=== PATIENT | female | born 1990 | race Caucasian/White ===

== ENCOUNTER 2021-12-12 14:09 | Emergency (ER) | payer SELFPAY ==
[2021-12-12 14:21] VITALS: BP 117/45; PULSE 95; RESP 16; TEMP 36.8; O2SAT 98
[2021-12-12 14:43] LABS: HCG Qualitative Urine. Negative (Negative)
[2021-12-12 14:48] LABS: Add Urine Microscopic? YES; Bilirubin Urine Neg (Negative); Blood Urine 2+ (Negative); Glucose Urine UA Norm (Normal); Ketones Urine Negative (Negative); Leukocyte Esterase Urine Negative (Negative); Nitrate Urine Negative (Negative); Protein Urine Neg (Negative); Urine Appearance SL Hazy (CLEAR); Urine Color Yellow (Yellow); Urobilinogen Urine 4 mg/dL (Negative); pH Urine 7 (5-7)
[2021-12-12 14:57] LABS: Bacteria Urine 1+ /hpf; Mucus Urine 2+ /hpf; WBC Urine 0-4 /hpf (0-5)
[2021-12-12 14:58] LABS: Add Urine Culture? No; Amorphous Sediment Urine 1+ /hpf
[2021-12-12 16:52] LABS: Basophils # 0.1 10^3/uL (0.0-0.1); Basophils % 0.6 %; Eosinophils # 0.1 10^3/uL (0.0-0.8); Eosinophils % 1.2 %; Hematocrit 38.4 % (37.0-47.0); Hemoglobin 12.7 g/dL (11.5-15.3); Lymphocytes # 2.5 10^3/uL (0.8-4.8); Lymphocytes % 23.9 %; Mean Corpuscular HGB Conc 33.1 g/dL (30.0-36.0); Mean Corpuscular Hemoglobin 30.2 pg (28.0-34.0); Mean Corpuscular Volume 91.4 fl (81-99); Mean Platelet Volume 11.6 fL (7.4-10.4); Monocytes # 0.5 10^3/uL (0.2-0.9); Monocytes % 4.7 %; Neutrophils # 7.11 10^3/uL (1.8-7.7); Neutrophils % 69.4 %; Nucleated Red Blood Cells % 0 %; Platelet Count 226 10^3/cmm (130-400); Red Cell Distribution Width 12.3 % (12.1-15.1); White Blood Count 10.2 10^3/uL (4.0-10.0)
[2021-12-12 17:15] LABS: Alanine Aminotransferase 15 U/L (0-33); Alkaline Phosphatase 95 IU/L (35-105); Anion Gap 14.1 (5-19); Aspartate Amino Transferase 16 U/L (0-32); Blood Urea Nitrogen 9 mg/dL (6-20); Carbon Dioxide 25 mmol/L (22-29); Chloride 106 mmol/L (98-107); Globulin 2.4 g/dL (1.3-4.6); Glucose 99 mg/dL (65-115); Osmolality Calculated 291 mOsm/kg (285-295); Potassium 4.1 mmol/L (3.5-5.1); Sodium 141 mmol/L (136-145); Total Bilirubin 0.2 mg/dL (0.15-1.2); Total Protein 6.4 g/dL (6.6-8.7)
--- NOTE | 2021-12-12 17:46 | ED_ITS ---
HPI - Female Genitourinary General: Chief complaint: Urogenital-Female Stated complaint: lower abd/back pain x 1wk Time Seen by Provider: 12/12/21 17:45 History of Present Illness: 31-year-old female comes in with urinary discomfort and flank pain for about 1 week. Patient reports history of urinary tract infections and a renal calculi. Patient reports no difficulties in the last year with these abnormalities. Patient denies any vaginal discharge. Patient appears nontoxic. Patient appears in mild pain. Patient reports taking [id number] naproxen with minimal relief. Review of Systems : Reports: flank pain and difficulty voiding Physical Exam Const: COMMON NORMALS: alert HENMT: COMMON NORMALS: normocephalic HEAD & SCALP: normocephalic Neck/C-Spine: COMMON NORMALS: full ROM Resp: COMMON NORMALS: normal respiratory effort GI: COMMON NORMALS: Soft to palpation PALPATION: Yes Soft to palpation Extremity: COMMON NORMALS: normal to inspection Neuro: SENSORIUM/ORIENTATION: Yes alert Skin: COMMON NORMALS: no rashes or lesions noted GENERAL SKIN EXAM: no rashes or lesions noted Course Vital Signs: Vital signs: Vital Signs Temperature 98.2 F 12/12/21 14:21 Pulse Rate 95 12/12/21 14:21 Respiratory Rate 16 12/12/21 14:21 Blood Pressure 117/45 12/12/21 14:21 Pulse Oximetry 98 12/12/21 14:21 [facility] - Female Medical Decision Making 31-year-old female comes in today with complaints of urinary discomfort and flank pain for about 1 week. On exam abdomen soft with minimal to no tenderness. Patient does have some mild right flank tenderness. Vital signs are normal. Differential diagnosis includes urinary tract infection, renal calculi, malingering. CBC had a increased white blood cell count 10,000. Urinalysis was notable for some blood and white blood cells but also had a significant number of skin cells. Urine culture was ordered per reflex. Ultrasound of the kidneys was unremarkable. CMP was unremarkable. Patient probably has a mild cystitis. We will go ahead and treat with cephalexin. Patient was given 6 tablets of hydrocodone for her discomfort due to allergies to NSAIDs and other pain relievers. Lab Data : 12/12/21 16:44 12/12/21 16:44 Laboratory Results WBC 10.2 10^3/uL (4.0-10.0) H 12/12/21 16:44 RBC 4.20 10^6/uL (4.1-5.3) 12/12/21 16:44 Hgb 12.7 g/dL (11.5-15.3) 12/12/21 16:44 Hct 38.4 % (37.0-47.0) 12/12/21 16:44 MCV 91.4 fl (81-99) 12/12/21 16:44 MCH 30.2 pg (28.0-34.0) 12/12/21 16:44 MCHC 33.1 g/dL (30.0-36.0) 12/12/21 16:44 RDW 12.3 % (12.1-15.1) 12/12/21 16:44 Plt Count 226 10^3/cmm (130-400) 12/12/21 16:44 MPV 11.6 fL (7.4-10.4) H 12/12/21 16:44 Neut % (Auto) 69.4 % 12/12/21 16:44 Lymph % (Auto) 23.9 % 12/12/21 16:44 [place] % (Auto) 4.7 % 12/12/21 16:44 Eos % (Auto) 1.2 % 12/12/21 16:44 Baso % (Auto) 0.6 % 12/12/21 16:44 Neut # (Auto) 7.11 10^3/uL (1.8-7.7) 12/12/21 16:44 Lymph # (Auto) 2.5 10^3/uL (0.8-4.8) 12/12/21 16:44 [place] # (Auto) 0.5 10^3/uL (0.2-0.9) 12/12/21 16:44 Eos # (Auto) 0.1 10^3/uL (0.0-0.8) 12/12/21 16:44 Baso # (Auto) 0.1 10^3/uL (0.0-0.1) 12/12/21 16:44 Nucleated RBC % (auto) 0 % 12/12/21 16:44 Nucleated RBCs # 0.0 /100WBC 12/12/21 16:44 Sodium 141 mmol/L (136-145) 12/12/21 16:44 Potassium 4.1 mmol/L (3.5-5.1) 12/12/21 16:44 Chloride 106 mmol/L (98-107) 12/12/21 16:44 Carbon Dioxide 25 mmol/L (22-29) 12/12/21 16:44 Anion Gap 14.1 (5-19) 12/12/21 16:44 BUN 9 mg/dL (6-20) 12/12/21 16:44 Creatinine 0.5 mg/dL (0.5-0.9) 12/12/21 16:44 GFR Calculation 143.0 mL/min (90-130) H 12/12/21 16:44 Glucose 99 mg/dL (65-115) 12/12/21 16:44 Calculated Osmolality 291 mOsm/kg (285-295) 12/12/21 16:44 Calcium 9.0 mg/dL (8.5-10.5) 12/12/21 16:44 Total Bilirubin 0.2 mg/dL (0.15-1.2) 12/12/21 16:44 AST 16 U/L (0-32) 12/12/21 16:44 ALT 15 U/L (0-33) 12/12/21 16:44 Alkaline Phosphatase 95 IU/L (35-105) 12/12/21 16:44 Total Protein 6.4 g/dL (6.6-8.7) L 12/12/21 16:44 Albumin 4.0 g/dL (3.5-5.2) 12/12/21 16:44 Globulin 2.4 g/dL (1.3-4.6) 12/12/21 16:44 HCG, Qual Negative (Negative) 12/12/21 14:28 Urine Color Yellow (Yellow) 12/12/21 14:28 Urine Appearance Sl hazy (CLEAR) 12/12/21 14:28 Urine pH 7 (5-7) 12/12/21 14:28 Ur Specific [place] 1.020 (1.005-1.030) 12/12/21 14:28 Urine Protein Neg (Negative) 12/12/21 14:28 Urine Glucose (UA) Norm (Normal) 12/12/21 14:28 Urine Ketones Negative (Negative) 12/12/21 14:28 Urine Blood 2+ (Negative) H 12/12/21 14:28 Urine Nitrate Negative (Negative) 12/12/21 14:28 Urine Bilirubin Neg (Negative) 12/12/21 14:28 Urine Urobilinogen 4 mg/dL (Negative) H 12/12/21 14:28 Ur Leukocyte Esterase Negative (Negative) 12/12/21 14:28 Urine RBC 5-10 /hpf (0-2) H 12/12/21 14:28 Urine WBC 0-4 /hpf (0-5) H 12/12/21 14:28 Ur Squamous Epith Cells 10-15 /hpf (0-5) H 12/12/21 14:28 Amorphous Sediment 1+ /hpf 12/12/21 14:28 Urine Bacteria 1+ /hpf (NONE) H 12/12/21 14:28 Urine Mucus 2+ /hpf 12/12/21 14:28 Discharge Plan Discharge Patient Disposition: Home Clinical Impression: Cystitis Condition: Stable Prescriptions: New cephalexin 500 mg capsule 500 mg PO BID 5 Days Qty: 9 0RF hydrocodone-acetaminophen 5-325 mg tablet 1 tab PO Q8H PRN (Reason: pain) Qty: 5 0RF Discharge Orders: Discharge ED (Routine); Ordered 12/12/21 Ordered By: Angel Ellis Discharge Diet: Usual diet Discharge Activity: Increase activity as tolerated Patient Instructions: Urinary Tract Infection in Women (ED) Activity Restrictions/Additional Instructions: Medications as directed. Drink plenty of water with them. Follow-up with primary care in 3 to 5 days for recheck of urine. Return to ER for new concerns. Coding Level of Care Code ED Safety Coordinator for [facility] Fwd Exam Detailed
--- NOTE | 2021-12-12 17:55 | USR_ITS ---
PROCEDURE INFORMATION: Exam: US Retroperitoneal; Complete; Kidneys and Bladder Exam date and time: 12/12/2021 6:30 PM Age: 31 years old Clinical indication: Abdominal pain; Additional info: R/O hydronephrosis TECHNIQUE: Imaging protocol: Real-time ultrasound of the retroperitoneum with image documentation. Complete exam focused on the kidneys and bladder. COMPARISON: CT kidney stone [id number] 03/09/2017 3:09 PM FINDINGS: Right kidney: Normal. No stones. No hydronephrosis. Left kidney: Normal. No stones. No hydronephrosis. Urinary bladder: Unremarkable. US/US renal BI* [id number] IMPRESSION: Unremarkable kidneys and bladder.
[2021-12-12] MEDS: HYDROcodone-acetaminophen 5-325 mg Tablet 1 TAB PO (17:59)
[2021-12-12] MEDS: cephALEXin 500 mg Capsule PO (19:10)
[2021-12-12 19:17] VITALS: BP 122/58; PULSE 58; RESP 14; O2SAT 98
== END 2021-12-12 19:18 | disposition home or self-care (01) ==
PROVIDERS: Emergency Medicine; Physician Assistant; Emergency Provider Nurse Practitioner Family
DX: N30.90 Cystitis, unspecified without hematuria (principal)
CPT/HCPCS: 76770; 80053; 81001; 81025; 85025; 99284

== ENCOUNTER 2022-01-08 22:51 | Emergency (ER) | payer SELFPAY ==
[2022-01-08 22:56] VITALS: BP 113/64; PULSE 74; RESP 18; TEMP 36.8; O2SAT 99; BMI 21.9
[2022-01-08 23:28] LABS: Protein Urine Neg (Negative); Specific Gravity, Urine 1.025 (1.005-1.030); Urine Appearance Hazy (CLEAR); Urine Color Yellow (Yellow); pH Urine 5 (5-7)
[2022-01-08 23:29] LABS: Add Urine Microscopic? YES; Bilirubin Urine Neg (Negative); Blood Urine 3+ (Negative); Glucose Urine UA Norm (Normal); Ketones Urine 1+ (Negative); Leukocyte Esterase Urine Trace (Negative); Nitrate Urine Negative (Negative); Urobilinogen Urine 1 mg/dL (Negative)
[2022-01-08 23:30] LABS: Add Urine Culture? No; Bacteria Urine 1+ /hpf; Mucus Urine 3+ /hpf; WBC Urine 0-4 /hpf (0-5)
[2022-01-08 23:31] LABS: Calcium Oxalate Crystals Urine 0-4 /hpf
--- NOTE | 2022-01-09 00:08 | CTR_ITS ---
PROCEDURE INFORMATION: Exam: CT Abdomen And Pelvis Without Contrast Exam date and time: 01/09/2022 12:12 AM Age: 31 years old Clinical indication: Abdominal pain; Prior surgery; Surgery type: Tubal ligation. Appy. Gb. Patient HX: Left flank pain with hematuria. ; Additional info: L flank pain. Hematuria TECHNIQUE: Imaging protocol: Computed tomography of the abdomen and pelvis without contrast. Radiation optimization: All CT scans at this facility use at least one of these dose optimization techniques: automated exposure control; mA and/or kV adjustment per patient size (includes targeted exams where dose is matched to clinical indication); or iterative reconstruction. COMPARISON: CR XR KUB [id number] 03/09/2017 1:45 PM RADIATION DOSE METRICS: Total DLP (mGy-cm): 357.8 FINDINGS: Liver: Normal. No mass. Gallbladder and bile ducts: Cholecystectomy. Pancreas: Normal. No ductal dilation. Spleen: Normal. No splenomegaly. Adrenal glands: Normal. No mass. Kidneys and ureters: Several suspected bilateral punctate non-obstructing calyceal stones. Stomach and bowel: Unremarkable. No obstruction. No mucosal thickening. Appendix: No evidence of appendicitis. Intraperitoneal space: Unremarkable. No free air. No significant fluid collection. Vasculature: Unremarkable. No abdominal aortic aneurysm. Lymph nodes: Unremarkable. No enlarged lymph nodes. Urinary bladder: Unremarkable as visualized. Reproductive: Unremarkable as visualized. Bones/joints: Unremarkable. No acute fracture. Soft tissues: Unremarkable. Other findings: Trace nonspecific fluid in the pelvis. CT/CT kidney stone [id number] IMPRESSION: 1. Negative for acute inflammatory process in the abdomen or pelvis. 2. Cholecystectomy. 3. Trace nonspecific fluid in the pelvis. 4. Several suspected bilateral punctate non-obstructing calyceal stones.
[2022-01-09 00:20] VITALS: RESP 18
[2022-01-09] MEDS: ondansetron 4 MG Tablet 8 MG PO (00:20)
[2022-01-09] MEDS: oxyCODONE-APAP 5-325 mg Tablet 2 TAB PO (00:20)
--- NOTE | 2022-01-09 01:35 | W.ED.GENADLT ---
HPI - General Adult General: Chief complaint: General Medical Stated complaint: UTI Time Seen by Provider: 01/08/22 23:13 Source: patient History of Present Illness: 31-year-old female with a history of kidney stones and urinary tract infection. She presents with suprapubic and left-sided greater than right-sided flank pain for the past few weeks. She notes increasing dysuria. She notes that her urine has been dark. She denies fever. She denies vomiting. She states she does get nauseated. No significant diarrhea. She says that she has scant white vaginal discharge without odor. Her last period was 2 weeks ago. Onset (ago): week(s) Location: abdomen and pelvis Radiation: flank Quality: burning and aching Pain Consistency: intermittent Relieving factors: none Associated symptoms: Reports nausea; Deny chest pain, confusion, cough, dyspnea, fevers/chills, headache(s), rash or vomiting Review of Systems Const: Denies: fever(s), chills or body aches Eyes: Denies: change in vision Card: Denies: chest pain Resp: Denies: dyspnea GI: Reports: abdominal pain and nausea; Denies: vomiting or diarrhea : Reports: dysuria; Denies: difficulty voiding Skin/Breast: Denies: rash Neuro: Denies: headache(s), weakness in extremities, dizziness or confusion Physical Exam Const: COMMON NORMALS: no acute distress GENERAL APPEARANCE: cooperative; not ill appearing and not frail appearing HENMT: COMMON NORMALS: normocephalic, atraumatic and Normal external nose present HEAD & SCALP: normocephalic and atraumatic FACE & SINUS: normal facial exam and face symmetric NOSE: Normal external nose present Eye: COMMON NORMALS: Equal, round and reactive pupils present and EOMs intact bilaterally PUPIL: Yes Equal, round and reactive pupils present Neck/C-Spine: GENERAL: Yes trachea midline Chest: CHEST: Yes Symmetrical chest wall rise Resp: COMMON NORMALS: normal respiratory effort, No retractions, No use of accessory muscles and clear to auscultation bilaterally AUSCULTATION: clear to auscultation bilaterally Cardio: COMMON NORMALS: regular rate and regular rhythm RATE: regular rate RHYTHM: regular rhythm GI: COMMON NORMALS: Normal to inspection, nondistended, normoactive bowel sounds present PALPATION: Yes Tenderness to palpation present (GI) (suprapubic) : BLADDER/KIDNEY EXAM: Yes CVA tenderness on the left Back/Pelvis: GENERAL BACK: Yes CVA tenderness Extremity: COMMON NORMALS: no pedal edema Neuro: JESÚS COMA SCALE: document GCS findings Jesús coma scale eye opening: Spontaneous Jesús coma scale verbal response: Orientated Jesús coma scale motor response: Obey commands Jesús coma scale total score: 15 SENSORY EXAM: Yes extremities (intact) Psych: COMMON NORMALS: speech normal SPEECH: Yes normal speech Skin: COMMON NORMALS: no rashes or lesions noted GENERAL SKIN EXAM: no rashes or lesions noted Course Vital Signs: Vital signs: Vital Signs Temperature 98.2 F 01/08/22 22:56 Pulse Rate 74 01/08/22 22:56 Respiratory Rate 18 01/09/22 00:20 Blood Pressure 113/64 01/08/22 22:56 Pulse Oximetry 99 01/08/22 22:56 MDM - General Adult Medical Decision Making Urinalysis shows hematuria. CT shows scant amount of pelvic free fluid, with no other acute changes. Gonorrhea and Chlamydia are sent via urine. We will have case management make her a PCP follow-up appointment Lab Data Radiology Impressions Abdomen/Pelvis CT 01/09/22 00:08 IMPRESSION: 1. Negative for acute inflammatory process in the abdomen or pelvis. 2. Cholecystectomy. 3. Trace nonspecific fluid in the pelvis. 4. Several suspected bilateral punctate non-obstructing calyceal stones. Laboratory Results Urine Color Yellow (Yellow) 01/08/22 23:15 Urine Appearance Hazy (CLEAR) A 01/08/22 23:15 Urine pH 5 (5-7) 01/08/22 23:15 Ur Specific [place] 1.025 (1.005-1.030) 01/08/22 23:15 Urine Protein Neg (Negative) 01/08/22 23:15 Urine Glucose (UA) Norm (Normal) 01/08/22 23:15 Urine Ketones 1+ (Negative) H 01/08/22 23:15 Urine Blood 3+ (Negative) H 01/08/22 23:15 Urine Nitrate Negative (Negative) 01/08/22 23:15 Urine Bilirubin Neg (Negative) 01/08/22 23:15 Urine Urobilinogen 1 mg/dL (Negative) H 01/08/22 23:15 Ur Leukocyte Esterase Trace (Negative) H 01/08/22 23:15 Urine RBC 10-15 /hpf (0-2) H 01/08/22 23:15 Urine WBC 0-4 /hpf (0-5) H 01/08/22 23:15 Ur Squamous Epith Cells 10-15 /hpf (0-5) H 01/08/22 23:15 Calcium Oxalate Crystal 0-4 /hpf H 01/08/22 23:15 Amorphous Sediment Not Reportable 01/08/22 23:15 Urine Bacteria 1+ /hpf (NONE) H 01/08/22 23:15 Urine Mucus 3+ /hpf 01/08/22 23:15 Discharge Plan Discharge Patient Disposition: Home Clinical Impression: Acute left flank pain Condition: Stable Prescriptions: No Action hydrocodone-acetaminophen 5-325 mg tablet 1 tab PO Q8H PRN (Reason: pain) Qty: 5 0RF Discharge Orders: Discharge ED (Routine); Ordered 01/09/22 Ordered By: Garret Doherty Discharge Diet: Advance as tolerated Discharge Activity: Increase activity as tolerated Patient Instructions: Flank Pain (ED), Opioid Safety Activity Restrictions/Additional Instructions: Return for fever greater than 100F, vomiting liquids or medications, worsening pain despite treatment, other concerning symptoms. Call for the results of the rest of your tests on tuesday. Coding Level of Care Code ED Electrical Engineering Draftsperson for [facility] Fwd Exam Comprehensive
--- NOTE | 2022-01-20 09:59 | DCPLANNER ---
late entry - patient case manager had message to speak with patient about getting established with a primary care physician. nurse unit manager unable to speak with patient at this time.
== END 2022-01-09 01:56 | disposition home or self-care (01) ==
PROVIDERS: Emergency Provider Emergency Medicine
DX: R10.9 Unspecified abdominal pain (principal)
CPT/HCPCS: 74176; 81001; 87591; 99285; Q0162

== ENCOUNTER → 2022-05-25 11:02 | Outpatient (BNVA) | payer MEDICAID, SELFPAY | PROVIDERS: Visit Provider Family Medicine | DX: F32.A Depression, unspecified (principal); F41.9 Anxiety disorder, unspecified; G47.00 Insomnia, unspecified; M79.10 Myalgia, unspecified site; M25.50 Pain in unspecified joint; R53.83 Other fatigue | CPT/HCPCS: 80053; 82607; 84443; 85025; 85651; 86038; 86140 ==

== ENCOUNTER 2022-06-04 10:54 | Outpatient (CLI) | payer MEDICAID, SELFPAY ==
--- NOTE | 2022-06-04 11:03 | XR_ITS ---
WS: [id number] LUMBAR SPINE: 3 VIEWS TECHNIQUE: AP, lateral and L5-S1 spot. HISTORY: M54.50 - Low back pain, unspecified COMPARISON: None available. Very mild LEFT curvature of the lumbar spine. No fractures. Pedicles are all identified. No loss of disc space or vertebral body height. SI joints are symmetric bilaterally. No soft tissue abnormalities. Prior cholecystectomy. XR/XR lumbar spine 2-3V* [id number] IMPRESSION: 1. Mild rotoscoliosis lumbar spine to the LEFT. 2. No fractures. 3. Prior cholecystectomy.
== END 2022-06-04 10:55 | disposition home or self-care (01) ==
LOC: RAD 10:57
PROVIDERS: PCP Family Medicine; Visit Provider Family Medicine
DX: M54.50 Low back pain, unspecified (principal); M41.86 Other forms of scoliosis, lumbar region
CPT/HCPCS: 72100

== ENCOUNTER 2022-08-23 16:30 | Outpatient (CLI) | payer BC, SELFPAY ==
--- NOTE | 2022-08-23 16:41 | CT_ITS ---
WS: [id number] CT LUMBAR SPINE, noncontrast. HISTORY: M54.50 - Low back pain, unspecified TECHNIQUE: Contiguous 2.0 mm axial imaging are performed. Sagittal and coronal reformats are submitte d and reviewed. All CT scans at [facility] use at least one of these dose optimization techni ques: automated exposure control; mA and/or kV adjustment per patient size (includes targeted exams w here dose is matched to clinical indication); or iterative reconstruction. IV contrast: None DLP: 310.48 mGy.cm COMPARISON: None available. Very mild rotary scoliosis of the lumbar spine. The posterior alignment is normal. No fractures or ma rrow signal abnormalities. No pars defects. Disc spaces are maintained. L1-2: Normal. L2-3: Normal. L3-4: No significant stenosis. There is a shallow LEFT foraminal disc protrusion not causing signific ant stenosis or contact on the nerve root. L4-5: Very mild annular disc bulging without stenosis. Mild facet arthritis. L5-S1: Mild asymmetric disc bulging. Very shallow RIGHT foraminal disc protrusion. Disc protrusion is not contacting the nerve roots. No significant stenosis. Prior cholecystectomy. Nonobstructing 2 mm calcification RIGHT renal pelvis. Negative SI joints. CT/CT lumbar spine wo con* [id number] IMPRESSION: 1. No significant disc protrusions or stenosis within the lumbar spine. 2. Very shallow LEFT foraminal disc protrusion at L3-4 and on the RIGHT at L5- S1. 3. Prior cholecystectomy.
== END 2022-08-23 16:31 | disposition home or self-care (01) ==
LOC: RAD 16:31
PROVIDERS: PCP Family Medicine; Visit Provider Family Medicine
DX: M51.27 Other intervertebral disc displacement, lumbosacral region (principal); M25.50 Pain in unspecified joint
CPT/HCPCS: 72131

== ENCOUNTER 2022-09-05 14:44 | Emergency (ER) | payer BC, MEDICAID, SELFPAY ==
[2022-09-05 14:53] VITALS: BP 114/79; PULSE 86; RESP 16; TEMP 36.7; O2SAT 97
[2022-09-05 15:12] LABS: Basophils # 0.1 10^3/uL (0.0-0.1); Basophils % 0.7 %; Eosinophils # 0.1 10^3/uL (0.0-0.8); Eosinophils % 0.4 %; Hematocrit 41.8 % (37.0-47.0); Hemoglobin 14.1 g/dL (11.5-15.3); Lymphocytes # 2.6 10^3/uL (0.8-4.8); Lymphocytes % 22.2 %; Mean Corpuscular HGB Conc 33.7 g/dL (30.0-36.0); Mean Corpuscular Hemoglobin 30.1 pg (28.0-34.0); Mean Corpuscular Volume 89.3 fl (81-99); Mean Platelet Volume 11.3 fL (7.4-10.4); Monocytes # 0.7 10^3/uL (0.2-0.9); Monocytes % 5.9 %; Neutrophils # 8.09 10^3/uL (1.8-7.7); Neutrophils % 70.5 %; Nucleated Red Blood Cells % 0 %; Platelet Count 238 10^3/cmm (130-400); Red Blood Count 4.68 10^6/uL (4.1-5.3); White Blood Count 11.5 10^3/uL (4.0-10.0)
[2022-09-05] MEDS: ondansetron 2 mg/ML SDV 2 mL 4 MG IVP ×2 (15:16→16:45)
[2022-09-05] MEDS: sodium chloride 0.9% 1,000 ML 999 ML IV ×2 (15:16→16:45)
--- NOTE | 2022-09-05 15:17 | ED_ITS ---
HPI - Abdominal Pain General: Chief Complaint: Abdominal Pain Stated Complaint: urinary pain Time Seen by Provider: 09/05/22 14:48 Source: patient Mode of arrival: ambulatory History of Present Illness: [id number] female presents emergency room complaining of dysuria urgency and frequency and right-sided flank pain. Only complaint is her period which is normal for her. She has noticed her urine is been all discolored but has not noticed any osvaldo blood. She has a history of recurrent UTIs and do not. She has not had any fever sweats or chills no vomiting or diarrhea. MD elicited complaint: abdominal pain Pertinent past history: none Onset (ago): minute(s) Pain Consistency: constant Location: None Severity: mild Quality: cramping Exacerbating factors: nothing Relieving factors: nothing Associated Symptoms: Reports dysuria; Denies anorexia, belching, bloating, change in bowel habits, change in stool character, chills, coffee ground emesis, constipation, GI cramping, diarrhea, dyspepsia, excessive flatus, fever(s), heartburn, hematochezia, hematuria, hematemesis, fecal incontinence, loose stools, melena, nausea, poor appetite, syncope and vomiting Review of Systems Const: Denies: fever(s) or chills ENMT: Denies: throat pain, ear or mastoid pain, nasal discharge or nasal congestion Card: Denies: syncope Resp: Denies: dyspnea, productive cough or non-productive cough GI: Denies: nausea, vomiting, hematemesis, coffee ground emesis, heartburn, diarrhea, constipation, bloating, GI cramping, belching, excessive flatus, fecal incontinence, change in bowel habits, change in stool character, hematochezia or melena : Reports: flank pain (R), dysuria, urinary frequency and urinary urgency; Denies: hematuria Skin/Breast: Denies: rash or pruritus PFSH ED PFSH: Medical History Anxiety Chronic constipation Psychiatric care Family History Father Cancer Dementia Mother Lupus Denies family history of Diabetes Chronic kidney disease (CKD) Family history of premature coronary artery disease Hypertension Social History (Reviewed 04/30/23 @ 15:21 by CASANDRA Aceves Smoking and tobacco status: current every day smoker Second hand smoke exposure: No Smoking risk assessment/counseling performed?: Yes Alcohol intake: never Desire information about alcohol rehabilitation?: No Counseling given: No Substance/Drug Use: unknown Desire information about substance/drug rehabilitation?: No Counseling given: No Adopted: No Caregiver/support person: No Lives independently: Yes Household members: significant other Housing: House Marital status: Single Number of children: 5 service: No Current occupational status: unemployed Pets and animals: Yes Pets & animals: dog(s) Do you think of yourself as: Straight/Heterosexual Current gender identity: Female Physical Exam Const: COMMON NORMALS: no acute distress GENERAL APPEARANCE: cooperative and comfortable ORIENTATION/CONSCIOUSNESS: Yes awake, Yes oriented to person, Yes oriented to place and Yes oriented to time HENMT: COMMON NORMALS: normocephalic, atraumatic and hearing grossly normal bilaterally HEAD & SCALP: normocephalic and atraumatic Resp: COMMON NORMALS: normal respiratory effort, No retractions, No use of accessory muscles and clear to auscultation bilaterally AUSCULTATION: clear to auscultation bilaterally Cardio: COMMON NORMALS: regular rate, regular rhythm and No murmurs present (Cardio) RATE: regular rate RHYTHM: regular rhythm GI: COMMON NORMALS: Soft to palpation and No hepatosplenomegaly present AUSCULTATION: Yes normoactive bowel sounds PALPATION: Yes Soft to palpation, No Tenderness to palpation present (GI), No Guarding due to palpation present (GI) and Yes No hepatosplenomegaly present : BLADDER/KIDNEY EXAM: Yes CVA tenderness Back/Pelvis: GENERAL BACK: Yes CVA tenderness CVA tenderness: right Extremity: COMMON NORMALS: normal to inspection, capillary refill normal, no clubbing, cyanosis or edema, no calf tenderness and no pedal edema Neuro: SENSORIUM/ORIENTATION: Yes oriented to person, Yes oriented to place and Yes oriented to time Skin: COMMON NORMALS: no rashes or lesions noted GENERAL SKIN EXAM: no genny hes or lesions noted Course Vital Signs: Vital signs: Vital Signs Temperature 98.0 F 09/05/22 14:53 Pulse Rate 86 09/05/22 14:53 Respiratory Rate 16 09/05/22 14:53 Blood Pressure 114/79 09/05/22 14:53 Pulse Oximetry 98 09/05/22 16:02 Oxygen Delivery Me thod Room Air 09/05/22 16:02 MDM - Abdominal Pain Medical Decision Making Patient is significant amount of blood in her urine greater than white blood cells. She was concerned she had a kidney stone reporting it felt similar. CT renal stone protocol was negative for nephrolithiasis. We will start Bactrim DS 1 p.o. twice daily x7 days push fluids recheck if not improving Medical Records I reviewed the patient's medical records. Lab Data I reviewed the patient's lab results. 09/05/22 15:07 09/05/22 15:07 Labs/Radiology: Radiology Impressions Abdomen/Pelvis CT 09/05/22 15:59 IMPRESSION: 1. Limited noncontrast examination without CT evidence of acute intra-abdominal or pelvic pathology. 2. Additional findings, as above. Laboratory Results WBC 11.5 10^3/uL (4.0-10.0) H 09/05/22 15:07 RBC 4.68 10^6/uL (4.1-5.3) 09/05/22 15:07 Hgb 14.1 g/dL (11.5-15.3) 09/05/22 15:07 Hct 41.8 % (37.0-47.0) 09/05/22 15:07 MCV 89.3 fl (81-99) 09/05/22 15:07 MCH 30.1 pg (28.0-34.0) 09/05/22 15:07 MCHC 33.7 g/dL (30.0-36.0) 09/05/22 15:07 RDW 12.0 % (12.1-15.1) L 09/05/22 15:07 Plt Count 238 10^3/cmm (130-400) 09/05/22 15:07 MPV 11.3 fL (7.4-10.4) H 09/05/22 15:07 Neut % (Auto) 70.5 % 09/05/22 15:07 Lymph % (Auto) 22.2 % 09/05/22 15:07 [place] % (Auto) 5.9 % 09/05/22 15:07 Eos % (Auto) 0.4 % 09/05/22 15:07 Baso % (Auto) 0.7 % 09/05/22 15:07 Neut # (Auto) 8.09 10^3/uL (1.8-7.7) H 09/05/22 15:07 Lymph # (Auto) 2.6 10^3/uL (0.8-4.8) 09/05/22 15:07 [place] # (Auto) 0.7 10^3/uL (0.2-0.9) 09/05/22 15:07 Eos # (Auto) 0.1 10^3/uL (0.0-0.8) 09/05/22 15:07 Baso # (Auto) 0.1 10^3/uL (0.0-0.1) 09/05/22 15:07 Nucleated RBC % (auto) 0 % 09/05/22 15:07 Nucleated RBCs # 0.0 /100WBC 09/05/22 15:07 Sodium 139 mmol/L (136-145) 09/05/22 15:07 Potassium 3.6 mmol/L (3.5-5.1) 09/05/22 15:07 Chloride 104 mmol/L (98-107) 09/05/22 15:07 Carbon Dioxide 23 mmol/L (22-29) 09/05/22 15:07 Anion Gap 15.6 (5-19) 09/05/22 15:07 BUN 9 mg/dL (6-20) 09/05/22 15:07 Creatinine 0.6 mg/dL (0.5-0.9) 09/05/22 15:07 GFR Calculation 115.1 mL/min (90-130) 09/05/22 15:07 Glucose 91 mg/dL (65-115) 09/05/22 15:07 Calculated Osmolality 286 mOsm/kg (285-295) 09/05/22 15:07 Calcium 9.4 mg/dL (8.5-10.5) 09/05/22 15:07 HCG, Qual Negative (Negative) 09/05/22 15:10 Urine Color Yellow (Yellow) 09/05/22 15:10 Urine Appearance Clear (CLEAR) 09/05/22 15:10 Urine pH 5 (5-7) 09/05/22 15:10 Ur Specific [place] 1.020 (1.005-1.030) 09/05/22 15:10 Urine Protein Neg (Negative) 09/05/22 15:10 Urine Glucose (UA) Norm (Normal) 09/05/22 15:10 Urine Ketones Negative (Negative) 09/05/22 15:10 Urine Blood 3+ (Negative) H 09/05/22 15:10 Urine Nitrate Negative (Negative) 09/05/22 15:10 Urine Bilirubin Neg (Negative) 09/05/22 15:10 Urine Urobilinogen Norm mg/dL (Negative) 09/05/22 15:10 Ur Leukocyte Esterase Trace (Negative) H 09/05/22 15:10 Urine RBC 5-10 /hpf (0-2) H 09/05/22 15:10 Urine WBC 0-4 /hpf (0-5) H 09/05/22 15:10 Ur Squamous Epith Cells 10-15 /hpf (0-5) H 09/05/22 15:10 Amorphous Sediment Not Reportable 09/05/22 15:10 Urine Bacteria 1+ /hpf (NONE) H 09/05/22 15:10 Urine Mucus Trace /hpf 09/05/22 15:10 Discharge Plan Discharge Patient Disposition: Home Clinical Impression: Cystitis Condition: Stable Prescriptions: New Bactrim DS 800-160 mg tablet 1 tab PO BID 7 Days Qty: 14 0RF Discontinued amoxicillin 875 mg tablet 875 mg PO BID Qty: 20 0RF No Action polyethylene glycol 3350 [Miralax] 17 gram/dose powder 4 g PO DAILY Qty: 510 1RF fluoxetine 40 mg capsule 40 mg PO DAILY Qty: 30 1RF magnesium oxide 400 mg magnesium tablet 400 - 800 mg PO .qpm Qty: 60 1RF [id number] 3.5-10,000-1 mg/mL-unit/mL-% drops,suspension 4 drp otic (ear) Q8H 10 Days Qty: 10 0RF Discharge Orders: Discharge ED (Routine); Ordered 09/05/22 Ordered By: Angel Travis Referrals: Yony Schaeffer DO [Primary Care Provider] - Patient Instructions: Opioid Safety, Pain Management Activity Restrictions/Additional Instructions: You were seen today for urinary tract symptoms and flank pain. The CT did not show any stones in the ureter. Urine showed signs of infection. We will treat with antibiotics 1 pill twice daily for 7 days. Increase fluid intake if your s ymptoms worsen or change return to the emergency room with your primary care physician. Coding Level of Care Code ED Crusher Loader Operator for Sunni Mclean
[2022-09-05 15:37] LABS: Anion Gap 15.6 (5-19); Blood Urea Nitrogen 9 mg/dL (6-20); Calcium 9.4 mg/dL (8.5-10.5); Carbon Dioxide 23 mmol/L (22-29); Chloride 104 mmol/L (98-107); Glomerular Filtration Rate 115.1 mL/min (90-130); Glucose 91 mg/dL (65-115); Osmolality Calculated 286 mOsm/kg (285-295); Potassium 3.6 mmol/L (3.5-5.1); Sodium 139 mmol/L (136-145)
[2022-09-05 15:57] LABS: Add Urine Microscopic? YES; Bacteria Urine 1+ /hpf; Bilirubin Urine Neg (Negative); Blood Urine 3+ (Negative); Glucose Urine UA Norm (Normal); Ketones Urine Negative (Negative); Leukocyte Esterase Urine Trace (Negative); Nitrate Urine Negative (Negative); Protein Urine Neg (Negative); Urine Appearance Clear (CLEAR); Urine Color Yellow (Yellow); Urobilinogen Urine Norm (Negative); WBC Urine 0-4 /hpf (0-5); pH Urine 5 (5-7)
[2022-09-05 15:58] LABS: Add Urine Culture? No; Mucus Urine TRACE /hpf
--- NOTE | 2022-09-05 15:59 | CTR_ITS ---
PROCEDURE INFORMATION: Exam: CT Abdomen And Pelvis Without Contrast Exam date and time: 09/05/2022 4:31 PM Age: 32 years old Clinical indication: Abdominal pain; Flank; Right; Prior surgery; Surgery type: Shanon; Appy; Additional info: Flank pain TECHNIQUE: Imaging protocol: Computed tomography of the abdomen and pelvis without contrast. Axial, coronal and sagittal reformatted images were created and reviewed. Radiation optimization: All CT scans at this facility use at least one of these dose optimization techniques: automated exposure control; mA and/or kV adjustment per patient size (includes targeted exams where dose is matched to clinical indication); or iterative reconstruction. REPORTING DATA: Count of CT and Cardiac NM exams in prior 12 months: This patient has received 2 known CTs and 0 known cardiac nuclear medicine studies in the 12 months prior to the current study. COMPARISON: CT kidney stone [id number] 01/09/2022 12:12 AM RADIATION DOSE METRICS: Total DLP (mGy-cm): 365.13 FINDINGS: Liver: Unremarkable. Gallbladder and bile ducts: Status post cholecystectomy. No biliary ductal dilatation. Pancreas: Unremarkable. Spleen: Unremarkable. Adrenal glands: Normal. No mass. Kidneys and ureters: Nonobstructing bilateral renal calculi. No hydronephrosis. Stomach and bowel: No bowel wall thickening. No obstruction. No pneumatosis. Appendix: Status post appendectomy. Intraperitoneal space: No free fluid. No organized fluid collection. No free air. Vasculature: Unremarkable. No aneurysm. Lymph nodes: No pathologically enlarged lymph nodes. Urinary bladder: Unremarkable as visualized. Reproductive: Unremarkable. Bones/joints: No acute osseous abnormality. Mild degenerative changes. Soft tissues: Unremarkable. CT/CT kidney stone [id number] IMPRESSION: 1. Limited noncontrast examination without CT evidence of acute intra-abdominal or pelvic pathology. 2. Additional findings, as above.
[2022-09-05 16:02] VITALS: O2SAT 98
[2022-09-05 16:16] LABS: HCG Qualitative Urine. Negative (Negative)
[2022-09-05] MEDS: morphine 4 mg/mL SDV 1 mL IVP (16:45)
== END 2022-09-05 18:01 | disposition home or self-care (01) ==
PROVIDERS: Emergency Provider Family Medicine; PCP Family Medicine
DX: N30.90 Cystitis, unspecified without hematuria (principal)
CPT/HCPCS: 74176; 80048; 81001; 81025; 85025; 96361; 96374; 96375; 96376; 99285; J2270; J2405; J7030

== ENCOUNTER 2022-12-08 20:12 | Emergency (ER) | payer BC, SELFPAY ==
[2022-12-08 20:32] VITALS: BP 140/50; PULSE 73; RESP 18; TEMP 36.7; O2SAT 97; BMI 22.6
[2022-12-08 21:16] LABS: Basophils # 0.1 10^3/uL (0.0-0.1); Basophils % 1.1 %; Eosinophils # 0.2 10^3/uL (0.0-0.8); Eosinophils % 2.4 %; Hematocrit 38.1 % (37.0-47.0); Hemoglobin 12.9 g/dL (11.5-15.3); Lymphocytes # 2.9 10^3/uL (0.8-4.8); Lymphocytes % 34.9 %; Mean Corpuscular HGB Conc 33.9 g/dL (30.0-36.0); Mean Corpuscular Hemoglobin 31.2 pg (28.0-34.0); Mean Platelet Volume 11.2 fL (7.4-10.4); Monocytes # 0.6 10^3/uL (0.2-0.9); Monocytes % 6.7 %; Neutrophils # 4.58 10^3/uL (1.8-7.7); Neutrophils % 54.8 %; Nucleated Red Blood Cells % 0 %; Platelet Count 219 10^3/cmm (130-400); Red Blood Count 4.14 10^6/uL (4.1-5.3); White Blood Count 8.4 10^3/uL (4.0-10.0)
[2022-12-08 21:38] LABS: Urine Appearance Clear (CLEAR); Urine Color Yellow (Yellow)
[2022-12-08 21:39] LABS: Add Urine Microscopic? YES; Bilirubin Urine Neg (Negative); Blood Urine 3+ (Negative); Glucose Urine UA Norm (Normal); Ketones Urine Negative (Negative); Leukocyte Esterase Urine Negative (Negative); Nitrate Urine Negative (Negative); Protein Urine Neg (Negative); Squamous Epithelial Cell Urine 0-4 /hpf (0-5); Urobilinogen Urine Neg (Negative); pH Urine 5 (5-7)
[2022-12-08 21:40] LABS: Add Urine Culture? Yes; Bacteria Urine TRACE /hpf; Mucus Urine 2+ /hpf
[2022-12-08 21:49] LABS: HCG, Serum Qual Negative (Negative)
[2022-12-08 22:10] LABS: Alanine Aminotransferase 11 U/L (0-33); Albumin Level 4.4 g/dL (3.5-5.2); Alkaline Phosphatase 70 U/L (35-105); Anion Gap 12.6 (5-19); Aspartate Amino Transferase 16 U/L (0-32); Blood Urea Nitrogen 8 mg/dL (6-20); Calcium 9.5 mg/dL (8.5-10.5); Carbon Dioxide 26 mmol/L (22-29); Chloride 104 mmol/L (98-107); Globulin 2.6 g/dL (1.3-4.6); Glomerular Filtration Rate 115.1 mL/min (90-130); Glucose 98 mg/dL (65-115); Lipase 16 U/L (13-60); Osmolality Calculated 286 mOsm/kg (285-295); Potassium 3.6 mmol/L (3.5-5.1); Sodium 139 mmol/L (136-145); Total Bilirubin 0.3 mg/dL (0.15-1.2)
== END 2022-12-09 00:30 | disposition left against medical advice (07) ==
LOC: ER 20:26
PROVIDERS: Emergency Medicine; Emergency Provider Family Medicine
DX: K92.1 Melena (principal); Z53.21 Procedure and treatment not carried out due to patient leaving prior to being seen by health care provider
CPT/HCPCS: 36415; 80053; 81001; 83690; 84703; 85025; 87077; 87086; 87186; 99283

== ENCOUNTER 2022-12-09 17:23 | Emergency (ER) | payer BC, MEDICAID, SELFPAY ==
[2022-12-09 17:34] VITALS: BP 111/73; PULSE 79; RESP 17; O2SAT 97
--- NOTE | 2022-12-09 17:38 | ED_ITS ---
HPI - Abdominal Pain General: Chief Complaint: Abdominal Pain Stated Complaint: Rectal bleeding Time Seen by Provider: 12/09/22 17:38 History of Present Illness: Ms. Gambino is a 32-year-old lady presenting the emergency department for concern over possible rectal bleeding. She notes increased frequency and intensity of intermittent abdominal discomfort associated with blood that she notices in her underwear. Epigastric and periumbilical with radiation to the flanks. She often has this associated with blood that she initially identifies as rectal bleeding however she at times notices blood in the toilet with urination and also has had bleeding that she is unaware of in her underwear. She reports that this is separate from normal menstrual periods. Abdominal surgeries include cholecystectomy and appendectomy. She has had a tubal ligation. No other specific changes in health, exacerbating, or alleviating factors identified. Onset (ago): month(s) Review of Systems General: Reports: 10 or more systems reviewed and unremarkable except in HPI and below PFSH ED PFSH: Medical History Anxiety Chronic constipation Psychiatric care Family History Father Cancer Dementia Mother Lupus Denies family history of Diabetes Chronic kidney disease (CKD) Family history of premature coronary artery disease Hypertension Social History Smoking and tobacco status: current every day smoker Second hand smoke exposure: No Smoking risk assessment/counseling performed?: Yes Alcohol intake: never Desire information about alcohol rehabilitation?: No Counseling given: No Substance/Drug Use: unknown Desire information about substance/drug rehabilitation?: No Counseling given: No Adopted: No Caregiver/support person: No Lives independently: Yes Household members: significant other Housing: House Marital status: Single Number of children: 5 service: No Current occupational status: unemployed Pets and animals: Yes Pets & animals: dog(s) Do you think of yourself as: Straight/Heterosexual Current gender identity: Female Physical Exam Const: COMMON NORMALS: alert GENERAL APPEARANCE: cooperative and well developed HENMT: COMMON NORMALS: normocephalic and atraumatic HEAD & SCALP: normocephalic and atraumatic Eye: COMMON NORMALS: conjunctivae normal CONJUNCTIVA: Yes conjunctivae normal SCLERA: sclerae normal Neck/C-Spine: COMMON NORMALS: supple GENERAL: Yes trachea midline Resp: COMMON NORMALS: normal respiratory effort EFFORT & INSPECTION: Yes able to speak in complete sentences Cardio: COMMON NORMALS: regular rate and regular rhythm RATE: regular rate RHYTHM: regular rhythm GI: COMMON NORMALS: Soft to palpation PALPATION: Yes Soft to palpation, Yes Tenderness to palpation present (GI), No Guarding due to palpation present (GI) and No Rigid due to palpation OTHER: Rectal exam performed with certified welding inspector present. Guaiac positive brown stool and clear mucus. Nonbleeding nontender nonirritated appearing external hemorrhoids. : COMMON NORMALS: Yes no CVA tenderness BLADDER/KIDNEY EXAM: Yes no CVA tenderness Back/Pelvis: COMMON NORMALS: no CVA tenderness Extremity: GENERAL: Yes normal exam except as noted and No edema Neuro: COMMON NORMALS: moves all extremities SENSORIUM/ORIENTATION: Yes alert and No Orientation impaired Psych: COMMON NORMALS: mental status grossly normal and Normal thought process present THOUGHT PROCESS: Normal thought process present Course Vital Signs: Vital signs: Vital Signs Pulse Rate 71 12/09/22 20:09 Respiratory Rate 18 12/09/22 20:35 Blood Pressure 100/50 12/09/22 20:09 Pulse Oximetry 100 12/09/22 20:09 Oxygen Delivery Me thod Room Air 12/09/22 20:09 MDM - Abdominal Pain Medical Decision Making 32-year-old lady presenting with concern over GI bleed. Exam as above. Patient has photos of blood on underwear which is more than a few drops. Somewhat odd for rectal bleeding. Nontoxic. Satisfactory vitals. Labs were actually performed yesterday and given clinical history, exam, vital signs I do not feel that repeat is necessary. Normal hemoglobin. hCG negative. Possible hematuria though this may be contaminant without clear evidence of urinary tract infection. Given indeterminate nature of the GI tract versus vaginal bleeding further imaging is appropriate. No acute abnormality identified on CT or pelvic ultrasound. During ED course analgesia, antiemetic, Protonix, fluids given. Plan for outpatient surgery referral for endoscopy. The results of ED evaluation were discussed with the patient including prescriptions and/or symptomatic cares (if applicable) including appropriate and responsible use, followup plan, and return precautions. The patient verbalized understanding and felt safe for discharge. Medical Records I reviewed the patient's medical records. Lab Data I reviewed the patient's lab results. Labs/Radiology: Radiology Impressions Abdomen/Pelvis CT 12/09/22 18:[address]: [address] evidence of acute intra-abdominal or pelvic pathology. 2. Additional findings, as above. Pelvis Ultrasound 12/09/22 18:14 IMPRESSION: No acute sonographic findings. Discharge Plan Discharge Patient Disposition: Home Clinical Impression: Rectal bleeding, Abdominal pain, Hemorrhoids Condition: Stable Prescriptions: New Protonix 40 mg tablet,delayed release (DR/EC) 40 mg PO BID 14 Days Qty: 28 0RF oxycodone 5 mg tablet 5 mg PO Q4H PRN (Reason: pain) Qty: 6 0RF sucralfate 1 gram tablet 1 g PO TID Qty: 30 0RF No Action polyethylene glycol 3350 [Miralax] 17 gram/dose powder 4 g PO DAILY Qty: 510 1RF fluoxetine [Prozac] 20 mg capsule 20 mg PO DAILY Qty: 30 1RF quetiapine [Seroquel] 50 mg tablet 50 mg PO .HS Qty: 30 1RF magnesium oxide 400 mg magnesium tablet 400 - 800 mg PO .qpm Qty: 60 1RF Discharge Orders: Discharge ED (Routine); Ordered 12/09/22 Ordered By: Juanito Austin Discharge Diet: Advance as tolerated and Clear Liquid Discharge Activity: Increase activity as tolerated Patient Instructions: Gastrointestinal Bleeding (ED), Constipation (ED), Hemorrhoids (ED), Abdominal Pain (ED), Opioid Safety Activity Restrictions/Additional Instructions: Thank you for visiting the emergency department. You were seen and evaluated for blood per rectum. The exact cause of your symptoms is unclear however does not appear to need hospitalization at this time. As discussed you do require follow-up and I will message case management for general surgery follow-up for consideration of endoscopy. I will prescribe a proton pump inhibitor and sucralfate, for uncontrolled pain I will prescribe oxycodone, use this cautiously as discussed. It can also worsen constipation. Please use MiraLAX or other [id number] medication. Also follow-up with your primary care provider. Return for uncontrolled symptoms or anything else that you are concerned about and feel needs emergency department evaluation. Coding Level of Care Code ED Correctional Security Officer for Sunni Mclean
--- NOTE | 2022-12-09 18:14 | USR_ITS ---
PROCEDURE INFORMATION: Exam: US Pelvis Complete, Transabdominal and US Pelvis, Transvaginal Exam date and time: 12/09/2022 7:27 PM Age: 32 years old Clinical indication: Other: No labs available at time of this exam. PT presenting with complaint of intermittent rectal bleeding x 6-12 months, becoming worse. History of tubal ligation 2014 [id number]; Prior surgery; Surgery date: 6+ months; Additional info: Possible abnormal uterine bleeding LABS AND CLINICAL REPORTS: Last menstrual period start date: 11/25/2022 TECHNIQUE: Imaging protocol: Real-time complete transabdominal and transvaginal pelvic ultrasound with image documentation. Transvaginal imaging was used for better evaluation of the endometrium, adnexa, and/or cervix. COMPARISON: CT abdomen pelvis w con* [id number] 12/09/2022 6:35 PM FINDINGS: Uterus/endometrium: Uterus measures 9.4 cm x 5.2 cm x 5.3 cm. Normal endometrial thickness, measuring approximately 6 mm. Right ovary/adnexa: Right ovary measures 3.5 cm x 3.4 cm x 2.2 cm. Right ovarian volume is 13.5 mL. No mass. Normal blood flow. Left ovary/adnexa: Left ovary measures 4.1 cm x 4.6 cm x 2 cm. Left ovarian volume is 19.7 mL. No mass. Normal blood flow. Intraperitoneal space: No intraperitoneal fluid. Urinary bladder: Normal. US/US pelvic complete* [id number] IMPRESSION: No acute sonographic findings.
--- NOTE | 2022-12-09 18:14 | CTR_ITS ---
PROCEDURE INFORMATION: Exam: CT Abdomen And Pelvis With Contrast Exam date and time: 12/09/2022 6:35 PM Age: 32 years old Clinical indication: Abdominal pain; Generalized; Additional info: Gi bleed, upper abd and flank pain TECHNIQUE: Imaging protocol: Computed tomography of the abdomen and pelvis with contrast. Axial, coronal and sagittal reformatted images were created and reviewed. Radiation optimization: All CT scans at this facility use at least one of these dose optimization techniques: automated exposure control; mA and/or kV adjustment per patient size (includes targeted exams where dose is matched to clinical indication); or iterative reconstruction. Contrast material: OMNI 350; Contrast volume: 100 ml; Contrast route: INTRAVENOUS (IV); REPORTING DATA: Count of CT and Cardiac NM exams in prior 12 months: This patient has received 3 known CTs and 0 known cardiac nuclear medicine studies in the 12 months prior to the current study. COMPARISON: CT kidney stone [id number] 09/05/2022 4:31 PM RADIATION DOSE METRICS: Total DLP (mGy-cm): 374.97 FINDINGS: Liver: Unremarkable. Gallbladder and bile ducts: Status post cholecystectomy. No biliary ductal dilatation. Pancreas: Unremarkable. Spleen: Unremarkable. Adrenal glands: Normal. No mass. Kidneys and ureters: No mass. No radiodense calculi. No hydronephrosis. Stomach and bowel: Moderate amount of retained stool in the colon. No obstruction. No bowel wall thickening. No pneumatosis. Appendix: Status post appendectomy. Intraperitoneal space: Trace nonspecific free pelvic fluid, likely physiologic. No organized fluid collection. No free air. Vasculature: Unremarkable. No aneurysm. Lymph nodes: No pathologically enlarged lymph nodes. Urinary bladder: Unremarkable as visualized. Reproductive: Unremarkable. Bones/joints: No acute osseous abnormality. Soft tissues: Unremarkable. CT/CT abdomen pelvis w con* [id number]: 1[address] No CT evidence of acute intra-abdominal or pelvic pathology. 2. Additional findings, as above.
[2022-12-09] MEDS: iohexol 350 mg/mL 500 mL Btl (per mL) IV (18:43)
[2022-12-09] MEDS: sodium chloride 0.9% 1,000 ML 999 ML IV (18:46)
[2022-12-09 18:47] VITALS: RESP 18
[2022-12-09] MEDS: pantoprazole 40 mg SDV 80 MG IVP (18:47)
[2022-12-09] MEDS: morphine 4 mg/mL SDV 1 mL IVP (18:47)
[2022-12-09] MEDS: ondansetron 2 mg/ML SDV 2 mL 4 MG IVP (18:47)
[2022-12-09 18:51] VITALS: BP 102/50; PULSE 64; RESP 18; O2SAT 98
[2022-12-09 19:30] VITALS: BP 112/62; PULSE 61; O2SAT 99
[2022-12-09 20:09] VITALS: BP 100/50; PULSE 71; O2SAT 100
[2022-12-09 20:35] VITALS: RESP 18
[2022-12-09] MEDS: oxyCODONE 5 mg IR Tab/Cap PO (20:35)
--- NOTE | 2022-12-10 11:22 | DCPLANNER ---
Addendum entered by Sravanthi Maldonado 12/17/22 10:37: Patient did attend appointment Addendum entered by Sravanthi Maldonado 12/15/22 08:34: Patient has a follow up appointment scheduled for December at 2:[address] Reese. Original Note: product design manager had message to schedule a follow up appointment for patient with general surgery. product design manager sent patients information to the front office staff at general surgery. Patients information will be printed and reviewed. Clinic will call patient with appointment information.
--- NOTE | 2022-12-13 15:45 | DCPLANNER ---
manager council was triggered to call patient due to no primary care physician - patient sees a physician at the [facility].
== END 2022-12-09 20:42 | disposition home or self-care (01) ==
PROVIDERS: Emergency Provider Emergency Medicine; PCP Family Medicine
DX: K62.5 Hemorrhage of anus and rectum (principal); K64.9 Unspecified hemorrhoids; R10.9 Unspecified abdominal pain; F17.210 Nicotine dependence, cigarettes, uncomplicated
CPT/HCPCS: 74177; 76856; 96361; 96374; 96375; 99285; C9113; J2270; J2405; J7030; Q9967

== ENCOUNTER 2022-12-31 06:22 | Day surgery (SDC) | payer BC, MEDICAID, SELFPAY ==
[2022-12-29 12:15] VITALS: BMI 21.4
--- NOTE | 2022-12-31 06:23 | P.HPUD_ITS ---
Surgery/Procedure H&P Update DATE OF PROCEDURE: December 31, 2022 DATE H&P PERFORMED: 12/16/22 H&P UPDATE INFORMATION: I have reviewed H&P completed within last 30 days, I have examined patient prior to procedure, No changes to prior documentation and H&P is in [facility] EMR on date indicated PLANNED PROCEDURE: Operation Date: 12/31/22 07:20 Proposed Procedures p Colonoscopy 12222,K92.1(Not Applicable) - Gabriel Lay MD
[2022-12-31 06:35] LABS: OR HCG Qualitative Urine Negative (Negative)
[2022-12-31 06:36] VITALS: BP 112/75; PULSE 73; RESP 18; TEMP 36.6; O2SAT 99
[2022-12-31] MEDS: sodium chloride 0.9% 1,000 ML 30 ML IV (06:44)
--- NOTE | 2022-12-31 06:56 | ANES.PREANE2 ---
Pre-Anesthetic Assessment Height/Weight: Height 1.68 m Weight 60.328 kg Temp Pulse Resp BP Pulse Ox O2 Del Method 97.9 F 73 18 112/75 99 Room Air 12/31/22 06:36 12/31/22 06:36 12/31/22 06:36 12/31/22 06:36 12/31/22 06:36 12/31/22 06:36 Operation Date: 12/31/22 07:20 Proposed Procedures p Colonoscopy 33970,K92.1(Not Applicable) - Gabriel Lay MD Familial anesthetic complications: none Was Beta Tiffanie taken within 24 hours: N/A Was Clonidine taken within 24 hours: N/A Last intake: Intake Last Liquid Date 12/30/22 Last Liquid Time 22:00 Last Solid Date 12/29/22 Last Solid Time 19:00 Social Tobacco and No alcohol 1 pack(s) per day Exam alert and oriented x 3 Airway Submandibular: within normal limits Cervical ROM: within normal limits Dentition: false History/ROS No significant history except as noted Pulmonary None reported CV/HEM open heart surgery (ASD repair at age 2 (1992)- no issues since None reported Hepatic None reported GI None reported Metabolic None reported Musc/skel None reported Neuropsych Anxiety and Depression Anesthetic Plan ASA status: 2 Anesthesia: Anesthesia Evaluation, General and MAC Medications/Allergies Home Medications Medication Instructions Recorded Confirmed Last Taken Type fluoxetine 20 mg capsule (Prozac) 20 mg PO DAILY #30 caps 09/09/22 12/31/22 12/30/22 Rx Allergies Allergy/AdvReac Type Severity Reaction Status Date / Time ketorolac [From Toradol] Allergy ALGY-Rash Verified 12/16/22 13:47 naproxen Allergy ALGY-Rash Verified 12/16/22 13:47 phenazopyridine Allergy ALGY-Rash Verified 12/16/22 13:47 [From Pyridium] Current Medications Generic Name Dose Route Start Last Admin Trade Name Freq PRN Reason Stop Dose Admin Sodium Chloride 1,000 mls @ 30 mls/hr 12/31/22 06:30 12/31/22 06:44 Sodium Chloride 0.9% IV 30 mls/hr .Q24H VENESSA Administration PFSH Anesthesia Medical History Anxiety Chronic constipation Psychiatric care Family History Father Cancer Dementia Mother Lupus Denies family history of Diabetes Chronic kidney disease (CKD) Family history of premature coronary artery disease Hypertension Social History Smoking and tobacco status: current every day smoker Second hand smoke exposure: No Smoking risk assessment/counseling performed?: Yes Alcohol intake: never Desire information about alcohol rehabilitation?: No Counseling given: No Substance/Drug Use: unknown Desire information about substance/drug rehabilitation?: No Counseling given: No Adopted: No Caregiver/support person: No Lives independently: Yes Household members: significant other Housing: House Marital status: Single Number of children: 5 service: No Current occupational status: unemployed Pets and animals: Yes Pets & animals: dog(s) Do you think of yourself as: Straight/Heterosexual Current gender identity: Female Female Reproductive History Date of last menstrual period: 12/21/22 Data Anesthesia Cardiac Studies: No Data to Display
[2022-12-31 07:48] VITALS: BP 101/68; PULSE 53; RESP 18; TEMP 36.1; O2SAT 99
--- NOTE | 2022-12-31 07:54 | ANE.PACU2 ---
Inpatient post-anesthesia follow up: Airway intact: Yes Vital signs: Temperature 97.9 F Pulse Rate 73 Respiratory Rate 18 Blood Pressure 112/75 Pulse Oximetry 99 Oxygen Delivery Me thod Room Air Oxygen Flow Rate Fraction of Inspir ed Oxygen Hydration adequate: Yes Nausea and vomiting: No Pain level: 1 Mental status: Baseline
[2022-12-31 07:58] VITALS: BP 111/61; PULSE 50; RESP 16; O2SAT 99
[2022-12-31 08:10] VITALS: BP 123/66; PULSE 52; RESP 16; O2SAT 100
== END 2022-12-31 08:20 | disposition home or self-care (01) ==
PROVIDERS: Anesthesiology; PCP Family Medicine; Visit Provider Surgery
PROC: 0DJD8ZZ Inspection of Lower Intestinal Tract, Via Natural or Artificial Opening Endoscopic (ICD-10-PCS; CPT 45378; principal; 2022-12-31 07:20)
DX: K92.1 Melena (principal); D12.8 Benign neoplasm of rectum; K60.1 Chronic anal fissure; F17.200 Nicotine dependence, unspecified, uncomplicated; F41.9 Anxiety disorder, unspecified
CPT/HCPCS: 45378; 81025; 84703; J2704; J7030

== ENCOUNTER 2023-02-05 15:12 | Emergency (ER) | payer BC, MEDICAID, SELFPAY ==
[2023-02-05 15:22] VITALS: BP 111/77; PULSE 95; RESP 14; TEMP 36.7; O2SAT 97
--- NOTE | 2023-02-05 16:22 | W.ED.FEMALGU ---
HPI - Female Genitourinary General: Chief complaint: Urogenital-Female Stated complaint: urinary Time Seen by Provider: 02/05/23 16:11 History of Present Illness: 32-year-old female comes in with a history of recurrent UTI and complaints of pelvic discomfort and burning with urination. Patient denies any fever nausea vomiting. Patient does report a history of renal calculi. Patient denies any other chronic medical conditions. Patient appears nontoxic. Patient appears in mild to no pain. Review of Systems General: Reports: 10 or more systems reviewed and unremarkable except in HPI and below : Reports: dysuria and pelvic pain PFSH ED PFSH: Medical History Anxiety Chronic constipation Psychiatric care Family History Father Cancer Dementia Mother Lupus Denies family history of Diabetes Chronic kidney disease (CKD) Family history of premature coronary artery disease Hypertension Social History Smoking and tobacco status: current every day smoker Second hand smoke exposure: No Smoking risk assessment/counseling performed?: Yes Alcohol intake: never Desire information about alcohol rehabilitation?: No Counseling given: No Substance/Drug Use: unknown Desire information about substance/drug rehabilitation?: No Counseling given: No Adopted: No Caregiver/support person: No Lives independently: Yes Household members: significant other Housing: House Marital status: Single Number of children: 5 service: No Current occupational status: unemployed Pets and animals: Yes Pets & animals: dog(s) Do you think of yourself as: Straight/Heterosexual Current gender identity: Female Physical Exam Const: COMMON NORMALS: alert HENMT: COMMON NORMALS: normocephalic HEAD & SCALP: normocephalic Resp: COMMON NORMALS: normal respiratory effort Cardio: COMMON NORMALS: regular rate RATE: regular rate GI: COMMON NORMALS: Soft to palpation PALPATION: Yes Soft to palpation and No Tenderness to palpation present (GI) : COMMON NORMALS: Yes no CVA tenderness BLADDER/KIDNEY EXAM: Yes no CVA tenderness Back/Pelvis: COMMON NORMALS: no CVA tenderness Extremity: COMMON NORMALS: normal to inspection Neuro: SENSORIUM/ORIENTATION: Yes alert Skin: COMMON NORMALS: turgor normal GENERAL SKIN EXAM: turgor normal Course Vital Signs: Vital signs: Vital Signs Temperature 98.0 F 02/05/23 15:22 Pulse Rate 95 02/05/23 15:22 Respiratory Rate 14 02/05/23 15:22 Blood Pressure 111/77 02/05/23 15:22 Pulse Oximetry 97 02/05/23 15:22 Oxygen Delivery Me thod Room Air 02/05/23 15:22 MDM - Female Medical Decision Making Patient comes in with pelvic pain and urinary discomfort. Patient reports symptoms for the last 2 days. Patient has a history of recurrent urinary tract infections and renal calculi. On exam no CVA tenderness is noted. Some suprapubic tenderness is noted on palpation. Vital signs are normal. Differential diagnosis includes cystitis, renal calculi, urethritis. Urinalysis has positive for red blood cells and white blood cells. No signs of severe illness is noted. We will go ahead and cover with sulfa?trimethoprim for 5 days. Patient was given medication for pain. Encourage lots of fluids and follow-up with primary care or return to the ER for worsening symptoms. Mother reported understanding and agreed to plan. Lab Data Laboratory Results HCG, Qual Negative (Negative) 02/05/23 16:12 Urine Color Yellow (Yellow) 02/05/23 16:12 Urine Appearance Clear (CLEAR) 02/05/23 16:12 Urine pH 7 (5-7) 02/05/23 16:12 Ur Specific [place] 1.005 (1.005-1.030) 02/05/23 16:12 Urine Protein Neg (Negative) 02/05/23 16:12 Urine Glucose (UA) Norm (Normal) 02/05/23 16:12 Urine Ketones Negative (Negative) 02/05/23 16:12 Urine Blood 2+ (Negative) H 02/05/23 16:12 Urine Nitrate Negative (Negative) 02/05/23 16:12 Urine Bilirubin Neg (Negative) 02/05/23 16:12 Urine Urobilinogen Norm mg/dL (Negative) 02/05/23 16:12 Ur Leukocyte Esterase Negative (Negative) 02/05/23 16:12 Urine RBC 5-10 /hpf (0-2) H 02/05/23 16:12 Urine WBC 0-4 /hpf (0-5) H 02/05/23 16:12 Ur Squamous Epith Cells 0-4 /hpf (0-5) H 02/05/23 16:12 Amorphous Sediment Not Reportable 02/05/23 16:12 Urine Bacteria Trace /hpf (NONE) 02/05/23 16:12 No radiology studies performed this visit Discharge Plan Discharge Patient Disposition: Home Clinical Impression: Cystitis Condition: Stable Prescriptions: New sulfamethoxazole-trimethoprim 800-160 mg tablet 1 tab PO DAILY 5 Days Qty: 10 0RF hydrocodone-acetaminophen 5-325 mg tablet 1 tab PO Q8H PRN (Reason: pain (scale score 7-10)) Qty: 7 0RF No Action fluoxetine [Prozac] 20 mg capsule 20 mg PO DAILY Qty: 30 1RF Discharge Orders: Discharge ED (Routine); Ordered 02/05/23 Ordered By: Angel Ellis Referrals: Yony Schaeffer DO [Primary Care Provider] - Discharge Diet: Usual diet Discharge Activity: Increase activity as tolerated Patient Instructions: Dysuria (ED), Opioid Safety Activity Restrictions/Additional Instructions: Take medication as directed. Drink plenty of water and fluids. Use acetaminophen and ibuprofen to control pain. Use hydrocodone for severe pain. Follow-up with primary care for further instructions. Return to ED for worsening symptoms such as high fever, inability to hold fluids down, or uncontrolled pain. Coding Level of Care Code ED [employer] for Sunni Mclean
[2023-02-05 16:39] LABS: HCG Qualitative Urine. Negative (Negative)
[2023-02-05 16:46] LABS: Add Urine Culture? No; Add Urine Microscopic? YES; Bacteria Urine TRACE /hpf; Bilirubin Urine Neg (Negative); Blood Urine 2+ (Negative); Glucose Urine UA Norm (Normal); Ketones Urine Negative (Negative); Leukocyte Esterase Urine Negative (Negative); Nitrate Urine Negative (Negative); Protein Urine Neg (Negative); Specific Gravity, Urine 1.005 (1.005-1.030); Squamous Epithelial Cell Urine 0-4 /hpf (0-5); Urine Appearance Clear (CLEAR); Urine Color Yellow (Yellow); Urobilinogen Urine Norm (Negative); WBC Urine 0-4 /hpf (0-5); pH Urine 7 (5-7)
[2023-02-05] MEDS: sulfamethoxazole-trimeth DS 160-800 mg Tablet 1 TAB PO (17:18)
[2023-02-05 17:29] VITALS: RESP 16; O2SAT 98
== END 2023-02-05 17:29 | disposition home or self-care (01) ==
PROVIDERS: Emergency Provider Nurse Practitioner Family; PCP Family Medicine
DX: N30.90 Cystitis, unspecified without hematuria (principal); F17.210 Nicotine dependence, cigarettes, uncomplicated
CPT/HCPCS: 81001; 81025; 99283

== ENCOUNTER 2023-04-13 08:39 | Emergency (ER) | payer BC, MEDICAID, SELFPAY ==
[2023-04-13 08:44] VITALS: BP 119/64; PULSE 77; RESP 16; TEMP 36.9; O2SAT 99; BMI 20.3
[2023-04-13 09:10] VITALS: BP 132/81; PULSE 69; O2SAT 96
--- NOTE | 2023-04-13 09:12 | ED_ITS ---
HPI - Female Genitourinary 2 General: Chief complaint: Urogenital-Female Stated complaint: possible uti Time Seen by Provider: 04/13/23 08:43 Source: patient Mode of arrival: ambulatory Limitations: no limitations History of Present Illness: 32-year-old female states over the last 2 days she has had some suprapubic pain along with dysuria. States she feels like she has a UTI she denies any fevers denies any severe pain she had no vomiting or diarrhea denies any vaginal discharge. Associated symptoms: Deny abdominal pain, headache(s) or nausea Date of Last Menstrual Period: 03/29/23 Review of Systems 2 Const: Denies: fever(s), chills, body aches or change in appetite ENMT: Denies: throat pain or dental pain Card: Denies: chest pain Resp: Denies: dyspnea GI: Denies: abdominal pain, nausea, vomiting or diarrhea Musc: Denies: neck pain or back pain Skin/Breast: Denies: rash Neuro: Denies: headache(s) PFSH ED 2 PFSH: Medical History Anxiety Chronic constipation Psychiatric care Family History Father Cancer Dementia Mother Lupus Denies family history of Diabetes Chronic kidney disease (CKD) Family history of premature coronary artery disease Hypertension Social History Smoking and tobacco/nicotine status: current every day tobacco/nicotine user Second hand smoke exposure: No Alcohol intake: never Substance/Drug Use: unknown Adopted: No Caregiver/support person: No Lives independently: Yes Household members: significant other Housing: House Marital status: Single Number of children: 5 service: No Current occupational status: unemployed Pets and animals: Yes Pets & animals: dog(s) Do you think of yourself as: Straight/Heterosexual Current gender identity: Female Female Reproductive History: Date of last menstrual period: 03/29/23 Physical Exam 2 Const: COMMON NORMALS: no acute distress, patient oriented x3 and healthy appearing HENMT: COMMON NORMALS: normocephalic and atraumatic HEAD & SCALP: n ormocephalic and atraumatic Neck/C-Spine: COMMON NORMALS: full ROM and supple Chest: COMMONS NORMALS: normal inspection of the chest and normal palpation of entire chest wall Resp: COMMON NORMALS: normal respiratory effort, No retractions, No use of accessory muscles and clear to auscultation bilaterally AUSCULTATION: clear to auscultation bilaterally Cardio: COMMON NORMALS: regular rate, regular rhythm and No murmurs present (Cardio) RATE: regular rate RHYTHM: regular rhythm GI: COMMON NORMALS: Normal to inspection, nondistended, normoactive bowel sounds present, Soft to palpation, non-tender and no masses PALPATION: Yes Soft to palpation Extremity: COMMON NORMALS: normal to inspection Neuro: COMMON NORMALS: patient oriented x3, moves all extremities and no focal motor deficits Psych: COMMON NORMALS: mental status grossly normal, Normal thought process present and cooperative THOUGHT PROCESS: Normal thought process present Skin: COMMON NORMALS: no rashes or lesions noted and no wounds GENERAL SKIN EXAM: no rashes or lesions noted Course 2 Vital Signs: Vital signs: Vital Signs Temperature 98.5 F 04/13/23 08:44 Pulse Rate 69 04/13/23 09:10 Respiratory Rate 16 04/13/23 08:44 Blood Pressure 132/81 04/13/23 09:10 Pulse Oximetry 96 04/13/23 09:10 Oxygen Delivery Me thod Room Air 04/13/23 09:10 MDM - Female Medical Decision Making Patient presents here with abdominal pain along with dysuria blood work urinalysis CT scan here are all normal she is well-appearing here she is stable for discharge she is to follow-up with her PCP and return if worsening she understands agrees to plan. Medical Records I reviewed the patient's medical records. Lab Data I reviewed the patient's lab results. 04/13/23 10:00 04/13/23 10:00 Laboratory Results WBC 7.53 10^3/uL (3.29-11.43) 04/13/23 10:00 RBC 4.58 10^6/uL (3.85-5.65) 04/13/23 10:00 Hgb 14.10 g/dL (11.27-16.99) 04/13/23 10:00 Hct 44.5 % (36-47) 04/13/23 10:00 MCV 97.2 fl (85-98) 04/13/23 10:00 MCH 30.8 pg (27-33) 04/13/23 10:00 MCHC 31.7 g/dL (30-55) 04/13/23 10:00 RDW 12.3 % (12.1-15.1) 04/13/23 10:00 Plt Count 204 10^3/cmm (157-399) 04/13/23 10:00 MPV 11.6 fL (7.4-10.4) H 04/13/23 10:00 Neut % (Auto) 68.5 % 04/13/23 10:00 Lymph % (Auto) 22.4 % 04/13/23 10:00 Jones % (Auto) 5.8 % 04/13/23 10:00 Eos % (Auto) 2.3 % 04/13/23 10:00 Baso % (Auto) 0.9 % 04/13/23 10:00 Neut # (Auto) 5.15 10^3/uL (1.8-7.7) 04/13/23 10:00 Lymph # (Auto) 1.7 10^3/uL (0.8-4.8) 04/13/23 10:00 Jones # (Auto) 0.4 10^3/uL (0.2-0.9) 04/13/23 10:00 Eos # (Auto) 0.2 10^3/uL (0.0-0.8) 04/13/23 10:00 Baso # (Auto) 0.1 10^3/uL (0.0-0.1) 04/13/23 10:00 Nucleated RBC % (auto) 0 % 04/13/23 10:00 Nucleated RBCs # 0.0 /100WBC 04/13/23 10:00 Sodium 140 mmol/L (136-145) 04/13/23 10:00 Potassium 4.2 mmol/L (3.5-5.1) 04/13/23 10:00 Chloride 105 mmol/L (98-107) 04/13/23 10:00 Carbon Dioxide 26 mmol/L (22-29) 04/13/23 10:00 Anion Gap 13.2 (5-19) 04/13/23 10:00 BUN 6 mg/dL (6-20) 04/13/23 10:00 Creatinine 0.5 mg/dL (0.5-0.9) 04/13/23 10:00 GFR Calculation 142.1 mL/min (90-130) H 04/13/23 10:00 Glucose 93 mg/dL (65-115) 04/13/23 10:00 Calculated Osmolality 287 mOsm/kg (285-295) 04/13/23 10:00 Calcium 9.4 mg/dL (8.5-10.5) 04/13/23 10:00 Total Bilirubin 0.2 mg/dL (0.15-1.2) 04/13/23 10:00 AST 12 U/L (0-32) 04/13/23 10:00 ALT 12 U/L (0-33) 04/13/23 10:00 Alkaline Phosphatase 72 U/L (35-105) 04/13/23 10:00 Total Protein 7.0 g/dL (6.6-8.7) 04/13/23 10:00 Albumin 4.3 g/dL (3.5-5.2) 04/13/23 10:00 Globulin 2.7 g/dL (1.3-4.6) 04/13/23 10:00 Lipase 28 U/L (13-60) 04/13/23 10:00 HCG, Qual Negative (Negative) 04/13/23 08:54 Urine Color Yellow (Yellow) 04/13/23 08:54 Urine Appearance Clear (CLEAR) 04/13/23 08:54 Urine pH 5 (5-7) 04/13/23 08:54 Ur Specific [place] 1.020 (1.005-1.030) 04/13/23 08:54 Urine Protein Neg (Negative) 04/13/23 08:54 Urine Glucose (UA) Norm (Normal) 04/13/23 08:54 Urine Ketones Negative (Negative) 04/13/23 08:54 Urine Blood 2+ (Negative) H 04/13/23 08:54 Urine Nitrate Negative (Negative) 04/13/23 08:54 Urine Bilirubin Neg (Negative) 04/13/23 08:54 Urine Urobilinogen Norm mg/dL (Negative) 04/13/23 08:54 Ur Leukocyte Esterase Negative (Negative) 04/13/23 08:54 Urine RBC 0-4 /hpf (0-2) H 04/13/23 08:54 Urine WBC 0-4 /hpf (0-5) H 04/13/23 08:54 Ur Squamous Epith Cells 5-10 /hpf (0-5) H 04/13/23 08:54 Ur Transition Epith Cell 0-4 /hpf 04/13/23 08:54 Amorphous Sediment Not Reportable 04/13/23 08:54 Urine Bacteria None /hpf (NONE) 04/13/23 08:54 Urine Mucus 2+ /hpf 04/13/23 08:54 All radiology interpretation(s) finalized by discharge Discharge Plan Discharge Patient Disposition: Home Clinical Impression: Dysuria Abdominal pain Qualifiers: Abdominal location: periumbilical Qualified Code(s): R10.33 - Periumbilical pain Condition: Stable Prescriptions: No Action No Known Home Medications Discharge Orders: Discharge ED (Routine); Ordered 04/13/23 Ordered By: Suhail Juares Referrals: Yony Schaeffer DO [Primary Care Provider] - 1-3 days Discharge Diet: Advance as tolerated Discharge Activity: Resume usual activity Patient Instructions: Abdominal Pain (ED) Coding Level of Care Code ED In[employer] for Sunni Mclean
[2023-04-13 09:35] LABS: Add Urine Microscopic? YES; Bilirubin Urine Neg (Negative); Blood Urine 2+ (Negative); Glucose Urine UA Norm (Normal); Ketones Urine Negative (Negative); Leukocyte Esterase Urine Negative (Negative); Nitrate Urine Negative (Negative); Protein Urine Neg (Negative); Urine Appearance Clear (CLEAR); Urine Color Yellow (Yellow); Urobilinogen Urine Norm (Negative); pH Urine 5 (5-7)
[2023-04-13 09:38] LABS: HCG Qualitative Urine. Negative (Negative)
--- NOTE | 2023-04-13 09:46 | CT_ITS ---
WS: [id number] CT ABDOMEN AND PELVIS NONCONTRAST HISTORY: abd pain TECHNIQUE: Imaging performed through the abdomen and pelvis. Coronal and sagittal reformats are submi tted. All CT scans at [facility] use at least one of these dose optimization techniques: auto mated exposure control; mA and/or kV adjustment per patient size (includes targeted exams where dose is matched to clinical indication); or iterative reconstruction. DLP: 352.78 mGy.cm COMPARISON: 12/09/2022 Lower thorax: Lung bases are clear. Visualized heart is normal. No hiatal hernia. Liver: Normal size liver. No mass or bile duct dilatation. Gallbladder: Prior cholecystectomy. Pancreas: Normal size and attenuation. Normal pancreatic duct. No pancreatitis or mass. Spleen: Normal. Adrenal glands: Normal. No mass. Right kidney: Normal size kidney. Single 2 mm renal calcification. No obstruction. Left kidney: Several 2 to 3 mm calcifications with no obstruction. No ureteral calcification. Aorta: Normal abdominal aorta, no aneurysm or atherosclerosis. No free fluid, intraperitoneal air or significant lymphadenopathy. GI tract: Mild diffuse constipation. Nondistended stomach. No small bowel obstruction. Prior appendec antolin. Abdominal wall: Small umbilical hernia contains fat only. Pelvis: Normal urinary bladder. Small follicles are noted within each ovary. There is a small amount of free fluid in the pelvis, greatest to the RIGHT of midline. Probably physiologic in amount. Osseous structures: Unremarkable. IMPRESSION: 1. Bilateral renal calcifications, nonobstructing and no hydronephrosis. 2. No ureteral calcification. 3. Prior appendectomy and cholecystectomy. 4. Numerous small follicles within each ovary and a small amount of free fluid in the pelvis.
[2023-04-13 09:47] LABS: RBC Urine 0-4 /hpf (0-2); Transitional Epi Cells Urine 0-4 /hpf; WBC Urine 0-4 /hpf (0-5)
[2023-04-13 09:48] LABS: Add Urine Culture? No; Mucus Urine 2+ /hpf
[2023-04-13 10:19] LABS: Basophils # 0.1 10^3/uL (0.0-0.1); Basophils % 0.9 %; Eosinophils # 0.2 10^3/uL (0.0-0.8); Eosinophils % 2.3 %; Hematocrit 44.5 % (36-47); Lymphocytes # 1.7 10^3/uL (0.8-4.8); Lymphocytes % 22.4 %; Mean Corpuscular HGB Conc 31.7 g/dL (30-55); Mean Corpuscular Hemoglobin 30.8 pg (27-33); Mean Corpuscular Volume 97.2 fl (85-98); Mean Platelet Volume 11.6 fL (7.4-10.4); Monocytes # 0.4 10^3/uL (0.2-0.9); Monocytes % 5.8 %; Neutrophils # 5.15 10^3/uL (1.8-7.7); Neutrophils % 68.5 %; Nucleated Red Blood Cells % 0 %; Platelet Count 204 10^3/cmm (157-399); Red Blood Count 4.58 10^6/uL (3.85-5.65); Red Cell Distribution Width 12.3 % (12.1-15.1); White Blood Count 7.53 10^3/uL (3.29-11.43)
[2023-04-13 10:30] LABS: Alanine Aminotransferase 12 U/L (0-33); Albumin Level 4.3 g/dL (3.5-5.2); Alkaline Phosphatase 72 U/L (35-105); Anion Gap 13.2 (5-19); Aspartate Amino Transferase 12 U/L (0-32); Blood Urea Nitrogen 6 mg/dL (6-20); Calcium 9.4 mg/dL (8.5-10.5); Carbon Dioxide 26 mmol/L (22-29); Chloride 105 mmol/L (98-107); Globulin 2.7 g/dL (1.3-4.6); Glomerular Filtration Rate 142.1 mL/min (90-130); Glucose 93 mg/dL (65-115); Lipase 28 U/L (13-60); Osmolality Calculated 287 mOsm/kg (285-295); Potassium 4.2 mmol/L (3.5-5.1); Sodium 140 mmol/L (136-145); Total Bilirubin 0.2 mg/dL (0.15-1.2)
[2023-04-13 10:56] VITALS: BP 113/64; PULSE 64; O2SAT 95
== END 2023-04-13 10:45 | disposition home or self-care (01) ==
PROVIDERS: Emergency Provider Emergency Medicine; PCP Family Medicine
DX: R30.0 Dysuria (principal); R10.33 Periumbilical pain; Z72.0 Tobacco use
CPT/HCPCS: 36415; 74176; 80053; 81001; 81025; 83690; 85025; 99284

== ENCOUNTER 2023-06-19 23:28 | Emergency (ER) | payer MEDICAID, SELFPAY ==
[2023-06-19 23:57] VITALS: BP 111/72; PULSE 88; RESP 16; TEMP 36.4; O2SAT 96; BMI 20.4
--- NOTE | 2023-06-20 00:27 | ED_ITS ---
Documented by User: ANN Oliva 06/22/23 13:16 HPI - Back Pain/Injury General: Chief Complaint: Back Pain/Injury Stated Complaint: lower back injury Time Seen by Provider: 06/20/23 00:23 History of Present Illness: 43-year-old female comes in today for co mplaints of low back pain. Patient reports moving furniture for the last 2 to 3 days and has aggravated her pain. Patient reports prior problems with back pain. Patient denies loss of bowel or bladder control. Patient reports feeling a popping sensation in her back when the pain started. Patient reports no fever. Patient has had a prior instance of sciatica. Patient appears nontoxic. Patient moves all extremities well. Patient is ambulatory. Review of Systems General: Reports: 10 or more systems reviewed and unremarkable except in HPI and below Musc: Reports: back pain PFSH ED PFSH: Medical History Anxiety Chronic constipation Psychiatric care Family History Father Cancer Dementia Mother Lupus Denies family history of Diabetes Chronic kidney disease (CKD) Family history of premature coronary artery disease Hypertension Social History Smoking and tobacco/nicotine status: current every day tobacco/nicotine user Second hand smoke exposure: No Alcohol intake: never Substance/Drug Use: unknown Adopted: No Caregiver/support person: No Lives independently: Yes Household members: significant other Housing: House Marital status: Single Number of children: 5 service: No Current occupational status: unemployed Pets and animals: Yes Pets & animals: dog(s) Do you think of yourself as: Straight/Heterosexual Current gender identity: Female Physical Exam Const: COMMON NORMALS: alert HENMT: COMMON NORMALS: normocephalic HEAD & SCALP: normocephalic Neck/C-Spine: COMMON NORMALS: full ROM Resp: COMMON NORMALS: normal respiratory effort and clear to auscultation bilaterally AUSCULTATION: clear to auscultation bilaterally Cardio: COMMON NORMALS: regular rate and regular rhythm RATE: regular rate RHYTHM: regular rhythm GI: OTHER: Patient is concerned about umbilical and mid abdominal hernia. Patient has a hernia along a incision line from a prior surgery which is easily reducible. Patient also has a periumbilical hernia that is easily reducible. Back/Pelvis: LUMBAR SPINE/LOWER BACK: Yes paraspinal muscle tenderness Lumbar paraspinal muscle tenderness: left Neuro: SENSORIUM/ORIENTATION: Yes alert Skin: COMMON NORMALS: turgor normal GENERAL SKIN EXAM: turgor normal Course Vital Signs: Vital signs: Vital Signs Temperature 97.5 F L 06/19/23 23:57 Pulse Rate 90 06/20/23 03:48 Respiratory Rate 16 06/20/23 03:48 Blood Pressure 111/72 06/19/23 23:57 Pulse Oximetry 98 06/20/23 03:48 Oxygen Delivery Me thod Room Air 06/19/23 23:57 MDM - Back Pain/Injury Medical Decision Making 33-year-old female comes in today with worsening back pain over the last 2 to 3 days. Patient appears nontoxic. Patient has paraspinous muscle tenderness in the right lower back. Patient appears nontoxic. Negative Homans' sign to left lower leg where it was discussed that it may be swollen. No edema is noted in either leg. No redness and induration is noted in either leg. Differential diagnosis includes not limited to lumbar radiculopathy, intervertebral disc disease, facet arthropathy, lumbar strain. Labs Radiology Impressions Abdomen/Pelvis CT 06/20/23 00:45 IMPRESSION: 1. Large volume fecal debris throughout the colon suggests constipation which could be symptomatic. Otherwise no acute abnormality. No renal or bowel obstruction. There has been prior appendectomy and cholecystectomy. 2. Mild lumbar levoscoliosis could be positional. No significant degenerative change in the spine. Laboratory Results Urine Color Yellow (Yellow) 06/20/23 00:05 Urine Appearance Cloudy (CLEAR) A 06/20/23 00:05 Urine pH 7 (5-7) 06/20/23 00:05 Ur Specific [place] 1.010 (1.005-1.030) 06/20/23 00:05 Urine Protein Neg (Negative) 06/20/23 00:05 Urine Glucose (UA) Norm (Normal) 06/20/23 00:05 Urine Ketones 2+ (Negative) H 06/20/23 00:05 Urine Blood 2+ (Negative) H 06/20/23 00:05 Urine Nitrate Negative (Negative) 06/20/23 00:05 Urine Bilirubin Neg (Negative) 06/20/23 00:05 Urine Urobilinogen Norm mg/dL (Negative) 06/20/23 00:05 Ur Leukocyte Esterase 2+ (Negative) H 06/20/23 00:05 Urine RBC 5-10 /hpf (0-2) H 06/20/23 00:05 Urine WBC 5-10 /hpf (0-5) H 06/20/23 00:05 Ur Squamous Epith Cells 0-4 /hpf (0-5) H 06/20/23 00:05 Amorphous Sediment Not Reportable 06/20/23 00:05 Urine Bacteria Trace /hpf (NONE) 06/20/23 00:05 Urine Mucus Trace /hpf 06/20/23 00:05 Discharge Plan Discharge Patient Disposition: Home Clinical Impression: Lumbar back pain, Constipation Condition: Stable Prescriptions: New hydrocodone-acetaminophen 5-325 mg tablet 1 tab PO Q8H PRN (Reason: pain) Qty: 7 0RF Medrol (Jamir) 4 mg tablets,dose pack See Rx Instructions .ROUTE .COMPLEX Qty: 21 0RF Rx Instructions: orally per package directions Citrate of Magnesia Solution 296 ml PO DAILY Qty: 296 0RF Discharge Orders: Discharge ED (Routine); Ordered 06/20/23 Ordered By: Garret Doherty Referrals: Yony Schaeffer DO [Primary Care Provider] - 1-3 days Patient Instructions: Constipation (ED), Back Pain (ED), Opioid Safety, Pain Management Activity Restrictions/Additional Instructions: Medication as directed for pain. You have a significant amount of stool in your colon that could be symptomatic in terms of back pain as well. You should use the laxative prescribed today as this can significantly improve your symptoms. Return for fever, other concerning symptoms. See your doctor this week. Coding Level of Care Code ED Manager Of Financial Planning for [facility] Documented by User: Garret Doherty DO 06/20/23 05:25 HPI - Back Pain/Injury General: Chief Complaint: Back Pain/Injury Stated Complaint: lower back injury Time Seen by Provider: 06/20/23 00:23 [facility] ED PFS: Medical History Anxiety Chronic constipation Psychiatric care Family History Father Cancer Dementia Mother Lupus Denies family history of Diabetes Chronic kidney disease (CKD) Family history of premature coronary artery disease Hypertension Social History Smoking and tobacco/nicotine status: current every day tobacco/nicotine user Second hand smoke exposure: No Alcohol intake: never Substance/Drug Use: unknown Adopted: No Caregiver/support person: No Lives independently: Yes Household members: significant other Housing: House Marital status: Single Number of children: 5 service: No Current occupational status: unemployed Pets and animals: Yes Pets & animals: dog(s) Do you think of yourself as: Straight/Heterosexual Current gender identity: Female Course Vital Signs: Vital signs: Vital Signs Temperature 97.5 F L 06/19/23 23:57 Pulse Rate 90 06/20/23 03:48 Respiratory Rate 16 06/20/23 03:48 Blood Pressure 111/72 06/19/23 23:57 Pulse Oximetry 98 06/20/23 03:48 Oxygen Delivery Me thod Room Air 06/19/23 23:57 MDM - Back Pain/Injury Medical Decision Making 33-year-old female comes in today with worsening back pain over the last 2 to 3 days. Patient appears nontoxic. Patient has paraspinous muscle tenderness in the right lower back. Patient appears nontoxic. Negative Homans' sign to left lower leg where it was discussed that it may be swollen. No edema is noted in either leg. No redness and induration is noted in either leg. Differential diagnosis includes not limited to lumbar radiculopathy, intervertebral disc disease, facet arthropathy, lumbar strain. Labs Radiology Impressions Abdomen/Pelvis CT 06/20/23 00:45 IMPRESSION: 1. Large volume fecal debris throughout the colon suggests constipation which could be symptomatic. Otherwise no acute abnormality. No renal or bowel obstruction. There has been prior appendectomy and cholecystectomy. 2. Mild lumbar levoscoliosis could be positional. No significant degenerative change in the spine. Laboratory Results Urine Color Yellow (Yellow) 06/20/23 00:05 Urine Appearance Cloudy (CLEAR) A 06/20/23 00:05 Urine pH 7 (5-7) 06/20/23 00:05 Ur Specific [place] 1.010 (1.005-1.030) 06/20/23 00:05 Urine Protein Neg (Negative) 06/20/23 00:05 Urine Glucose (UA) Norm (Normal) 06/20/23 00:05 Urine Ketones 2+ (Negative) H 06/20/23 00:05 Urine Blood 2+ (Negative) H 06/20/23 00:05 Urine Nitrate Negative (Negative) 06/20/23 00:05 Urine Bilirubin Neg (Negative) 06/20/23 00:05 Urine Urobilinogen Norm mg/dL (Negative) 06/20/23 00:05 Ur Leukocyte Esterase 2+ (Negative) H 06/20/23 00:05 Urine RBC 5-10 /hpf (0-2) H 06/20/23 00:05 Urine WBC 5-10 /hpf (0-5) H 06/20/23 00:05 Ur Squamous Epith Cells 0-4 /hpf (0-5) H 06/20/23 00:05 Amorphous Sediment Not Reportable 06/20/23 00:05 Urine Bacteria Trace /hpf (NONE) 06/20/23 00:05 Urine Mucus Trace /hpf 06/20/23 00:05 All radiology interpretation(s) finalized by discharge Discharge Plan Discharge Patient Disposition: Home Clinical Impression: Lumbar back pain, Constipation Condition: Stable Prescriptions: New hydrocodone-acetaminophen 5-325 mg tablet 1 tab PO Q8H PRN (Reason: pain) Qty: 7 0RF Medrol (Jamir) 4 mg tablets,dose pack See Rx Instructions .ROUTE .COMPLEX Qty: 21 0RF Rx Instructions: orally per package directions Citrate of Magnesia Solution 296 ml PO DAILY Qty: 296 0RF Discharge Orders: Discharge ED (Routine); Ordered 06/20/23 Ordered By: Garret Doherty Referrals: Yony Schaeffer DO [Primary Care Provider] - 1-3 days Patient Instructions: Constipation (ED), Back Pain (ED), Opioid Safety, Pain Management Activity Restrictions/Additional Instructions: Medication as directed for pain. You have a significant amount of stool in your colon that could be symptomatic in terms of back pain as well. You should use the laxative prescribed today as this can significantly improve your symptoms. Return for fever, other concerning symptoms. See your doctor this week. Coding Level of Care Code ED Manager Of Financial Planning for Sunni Mclean
--- NOTE | 2023-06-20 00:45 | CTR_ITS ---
PROCEDURE INFORMATION: Exam: CT Abdomen And Pelvis Without Contrast Exam date and time: 06/20/2023 1:38 AM Age: 33 years old Clinical indication: Abdominal pain; Generalized; Prior surgery; Surgery date: 6+ months; Surgery type: Gb. Appy. Tubal; Patient HX: C/O diffuse abd and low back pain TECHNIQUE: Imaging protocol: Computed tomography of the abdomen and pelvis without contrast. Radiation optimization: All CT scans at this facility use at least one of these dose optimization techniques: automated exposure control; mA and/or kV adjustment per patient size (includes targeted exams where dose is matched to clinical indication); or iterative reconstruction. COMPARISON: CT kidney stone [id number] 04/13/2023 9:51 AM RADIATION DOSE METRICS: Total DLP (mGy-cm): 621.43 FINDINGS: Lungs: Clear basilar lung parenchyma. Pleural spaces: No pleural fluid. Heart: Normal heart size. Liver: Normal configuration. Homogeneous parenchyma. Gallbladder and bile ducts: Prior cholecystectomy. No biliary tree dilation or high-density retained stones appreciated. Pancreas: Normal. No ductal dilation. Spleen: Normal. No splenomegaly. Adrenal glands: Normal configuration. Kidneys and ureters: Punctate bilateral intrarenal calculi. No ureteral calculi or features of renal obstruction. Stomach and bowel: Postprandial stomach. Normal caliber small bowel. Large volume fecal debris is noted throughout the colon. Appendix: Prior appendectomy. Intraperitoneal space: No free air. No significant fluid collection. Vasculature: Normal caliber arterial structures. Lymph nodes: No enlarged lymph nodes. Urinary bladder: Unremarkable as visualized. Reproductive: Physiologic appearance for age. Bones/joints: Mild rotatory levoscoliosis may be positional. No significant degenerative change noted in the spine. No fracture or aggressive lesion of the visualized bony structures. Soft tissues: Unremarkable. CT/CT abdomen pelvis wo con [id number] IMPRESSION: 1. Large volume fecal debris throughout the colon suggests constipation which could be symptomatic. Otherwise no acute abnormality. No renal or bowel obstruction. There has been prior appendectomy and cholecystectomy. 2. Mild lumbar levoscoliosis could be positional. No significant degenerative change in the spine.
[2023-06-20] MEDS: HYDROcodone-acetaminophen 7.5-325 mg Tablet 1 TAB PO (00:54)
[2023-06-20 00:55] LABS: Add Urine Microscopic? YES
[2023-06-20 00:56] LABS: Add Urine Culture? Yes; Bacteria Urine TRACE /hpf; Bilirubin Urine Neg (Negative); Blood Urine 2+ (Negative); Glucose Urine UA Norm (Normal); Ketones Urine 2+ (Negative); Leukocyte Esterase Urine 2+ (Negative); Mucus Urine TRACE /hpf; Nitrate Urine Negative (Negative); Protein Urine Neg (Negative); Squamous Epithelial Cell Urine 0-4 /hpf (0-5); Urine Appearance Cloudy (CLEAR); Urine Color Yellow (Yellow); Urobilinogen Urine Norm (Negative); pH Urine 7 (5-7)
[2023-06-20 03:48] VITALS: PULSE 90; RESP 16; O2SAT 98
== END 2023-06-20 03:30 | disposition home or self-care (01) ==
PROVIDERS: Emergency Provider Nurse Practitioner Family; PCP Family Medicine
DX: M54.50 Low back pain, unspecified (principal); K59.00 Constipation, unspecified; Z72.0 Tobacco use
CPT/HCPCS: 74176; 81001; 87086; 99284

== ENCOUNTER 2023-07-11 03:39 | Emergency (ER) | payer SELFPAY ==
[2023-07-11 03:49] VITALS: BP 101/77; PULSE 86; RESP 17; TEMP 36.5; O2SAT 92; BMI 20.3
--- NOTE | 2023-07-11 04:13 | CTR_ITS ---
PROCEDURE INFORMATION: Exam: CT Abdomen And Pelvis With Contrast Exam date and time: 07/11/2023 5:28 AM Age: 33 years old Clinical indication: Constipation and fever; Abdominal pain; Generalized; Patient HX: Loss of appetite; Additional info: Abd pain HX of hernia TECHNIQUE: Imaging protocol: Computed tomography of the abdomen and pelvis with contrast. Radiation optimization: All CT scans at this facility use at least one of these dose optimization techniques: automated exposure control; mA and/or kV adjustment per patient size (includes targeted exams where dose is matched to clinical indication); or iterative reconstruction. Contrast material: OMNI 350; Contrast volume: 80 ml; Contrast route: INTRAVENOUS (IV); COMPARISON: CT abdomen pelvis wo con [id number] 06/20/2023 1:38 AM RADIATION DOSE METRICS: Total DLP (mGy-cm): 377.84 FINDINGS: Liver: Normal. No mass. Gallbladder and bile ducts: Normal. No calcified stones. No ductal dilation. Pancreas: Normal. No ductal dilation. Spleen: Normal. No splenomegaly. Adrenal glands: Normal. No mass. Kidneys and ureters: Normal. No hydronephrosis. Stomach and bowel: Unremarkable. No obstruction. No mucosal thickening. Appendix: No evidence of appendicitis. Cholecystectomy. Intraperitoneal space: Unremarkable. No free air. No significant fluid collection. Vasculature: Unremarkable. No abdominal aortic aneurysm. Lymph nodes: Unremarkable. No enlarged lymph nodes. Urinary bladder: Unremarkable as visualized. Reproductive: Unremarkable as visualized. Bones/joints: Unremarkable. No acute fracture. Soft tissues: Unremarkable. CT/CT abdomen pelvis w con* [id number] IMPRESSION: No acute findings.
[2023-07-11 04:18] VITALS: BP 101/77; PULSE 88; RESP 16; O2SAT 96
[2023-07-11 04:19] LABS: Basophils % 0.5 %; Eosinophils # 0.2 10^3/uL (0.0-0.8); Eosinophils % 3.7 %; Hematocrit 44.1 % (36-47); Lymphocytes # 2.9 10^3/uL (0.8-4.8); Lymphocytes % 49.3 %; Mean Corpuscular HGB Conc 32.9 g/dL (30-55); Mean Corpuscular Volume 91.3 fl (85-98); Mean Platelet Volume 11.5 fL (7.4-10.4); Monocytes # 0.5 10^3/uL (0.2-0.9); Monocytes % 8.1 %; Neutrophils # 2.28 10^3/uL (1.8-7.7); Neutrophils % 38.2 %; Nucleated Red Blood Cells % 0 %; Platelet Count 231 10^3/cmm (157-399); Red Blood Count 4.83 10^6/uL (3.85-5.65); Red Cell Distribution Width 12.3 % (12.1-15.1); White Blood Count 5.96 10^3/uL (3.29-11.43)
[2023-07-11 04:31] LABS: HCG, Serum Qual Negative (Negative)
[2023-07-11 04:42] LABS: Alanine Aminotransferase 20 U/L (0-33); Albumin Level 4.4 g/dL (3.5-5.2); Alkaline Phosphatase 82 U/L (35-105); Anion Gap 14.6 (5-19); Aspartate Amino Transferase 23 U/L (0-32); Blood Urea Nitrogen 13 mg/dL (6-20); Calcium 8.8 mg/dL (8.5-10.5); Carbon Dioxide 26 mmol/L (22-29); Chloride 100 mmol/L (98-107); Creatinine Clr Calc Pharmacy 108.2394; Globulin 3.2 g/dL (1.3-4.6); Glomerular Filtration Rate 95.8 mL/min (90-130); Glucose 107 mg/dL (65-115); Lipase 27 U/L (13-60); Osmolality Calculated 285 mOsm/kg (285-295); Potassium 3.6 mmol/L (3.5-5.1); Sodium 137 mmol/L (136-145); Total Bilirubin 0.2 mg/dL (0.15-1.2); Total Protein 7.6 g/dL (6.6-8.7)
[2023-07-11 04:46] LABS: Alcohol Level < 10 mg/dL (0-10)
--- NOTE | 2023-07-11 05:13 | ED_ITS ---
HPI - Abdominal Pain 2 General: Chief Complaint: Abdominal Pain Stated Complaint: abd pain constipated sob with abd hernia Time Seen by Provider: 07/11/23 03:51 History of Present Illness: 33-year-old female with multiple complai nts this morning. The first is that of abdominal pain. She points to her anterior abdomen, and says that she has a history of a hernia there. She can feel the hernia. At times it hurts badly. She says the bump is always there, and it is easier to feel when she stands. She also has symptoms of urinary tract infection she says. She has some burning with urination. She has some suprapubic pelvic pain and back pain she says. She is concerned also that she has the flu, as she has a child with the flu. Associated Symptoms: Reports nausea and vomiting; Denies fever(s) Review of Systems 2 Const: Denies: fever(s) Resp: Denies: dyspnea GI: Reports: abdominal pain, nausea and vomiting : Reports: flank pain; Denies: urinary frequency Musc: Reports: back pain Skin/Breast: Reports: rash PFSH ED 2 PFSH: Medical History Psychiatric care Anxiety Chronic constipation Family History Father Cancer Dementia Mother Lupus Denies family history of Diabetes Chronic kidney disease (CKD) Family history of premature coronary artery disease Hypertension Social History Smoking and tobacco/nicotine status: current every day tobacco/nicotine user Second hand smoke exposure: No Alcohol intake: never Substance/Drug Use: unknown Adopted: No Caregiver/support person: No Lives independently: Yes Household members: significant other Housing: House Marital status: Single Number of children: 5 service: No Current occupational status: unemployed Pets and animals: Yes Pets & animals: dog(s) Do you think of yourself as: Straight/Heterosexual Current gender identity: Female Physical Exam 2 Const: COMMON NORMALS: no acute distress and alert HENMT: COMMON NORMALS: normocephalic, atraumatic and Normal external nose present HEAD & SCALP: normocephalic and atraumatic FACE & SINUS: normal facial exam and face symmetric NOSE: Normal external nose present Eye: COMMON NORMALS: Equal, round and reactive pupils present and EOMs intact bilaterally PUPIL: Yes Equal, round and reactive pupils present Neck/C-Spine: GENERAL: Yes trachea midline Chest: CHEST: Yes Symmetrical chest wall rise Resp: COMMON NORMALS: normal respiratory effort, No use of accessory muscles and clear to auscultation bilaterally AUSCULTATION: clear to auscultation bilaterally Cardio: COMMON NORMALS: regular rate and regular rhythm RATE: regular rate RHYTHM: regular rhythm GI: OTHER: On palpation, small area superior to the umbilicus of tender tissue. Could be a lipoma versus a small fat-containing hernia. Extremity: COMMON NORMALS: no pedal edema Neuro: JEREMIE COMA SCALE: document GCS findings Bussey coma scale eye opening: Spontaneous Jeremie coma scale verbal response: Orientated Bussey coma scale motor response: Obey commands Bussey coma scale total score: 15 S ENSORIUM/ORIENTATION: Yes alert Skin: NARRATIVE SKIN EXAM: Right neck and shoulder follicular rash Course 2 Vital Signs: Vital signs: Vital Signs Temperature 97.7 F 07/11/23 03:49 Pulse Rate 88 07/11/23 04:18 Respiratory Rate 16 07/11/23 04:18 Blood Pressure 101/77 07/11/23 04:18 Pulse Oximetry 96 07/11/23 04:18 Oxygen Delivery Me thod Room Air 07/11/23 04:18 MDM - Abdominal Pain Medical Decision Making 33-year-old female with multiple complaints. She does have a urinary tract infection which will be treated. Her CBC is normal. Her BMP is normal. Her CRP is 3. Her CT shows no acute findings. There is a small likely ventral hernia that contains only fat present on the CT scan. She will be discharged on antibiotics for urinary tract infection. She was found to be positive for benzodiazepines, opiates, and THC on urine drug screen testing. Lab Data 07/11/23 03:56 07/11/23 03:56 Labs/Radiology: Radiology Impressions Abdomen/Pelvis CT 07/11/23 04:13 IMPRESSION: No acute findings. Laboratory Results WBC 5.96 10^3/uL (3.29-11.43) 07/11/23 03:56 RBC 4.83 10^6/uL (3.85-5.65) 07/11/23 03:56 Hgb 14.50 g/dL (11.27-16.99) 07/11/23 03:56 Hct 44.1 % (36-47) 07/11/23 03:56 MCV 91.3 fl (85-98) 07/11/23 03:56 MCH 30.0 pg (27-33) 07/11/23 03:56 MCHC 32.9 g/dL (30-55) 07/11/23 03:56 RDW 12.3 % (12.1-15.1) 07/11/23 03:56 Plt Count 231 10^3/cmm (157-399) 07/11/23 03:56 MPV 11.5 fL (7.4-10.4) H 07/11/23 03:56 Neut % (Auto) 38.2 % 07/11/23 03:56 Lymph % (Auto) 49.3 % 07/11/23 03:56 [place] % (Auto) 8.1 % 07/11/23 03:56 Eos % (Auto) 3.7 % 07/11/23 03:56 Baso % (Auto) 0.5 % 07/11/23 03:56 Neut # (Auto) 2.28 10^3/uL (1.8-7.7) 07/11/23 03:56 Lymph # (Auto) 2.9 10^3/uL (0.8-4.8) 07/11/23 03:56 [place] # (Auto) 0.5 10^3/uL (0.2-0.9) 07/11/23 03:56 Eos # (Auto) 0.2 10^3/uL (0.0-0.8) 07/11/23 03:56 Baso # (Auto) 0.0 10^3/uL (0.0-0.1) 07/11/23 03:56 Nucleated RBC % (auto) 0 % 07/11/23 03:56 Nucleated RBCs # 0.0 /100WBC 07/11/23 03:56 Sodium 137 mmol/L (136-145) 07/11/23 03:56 Potassium 3.6 mmol/L (3.5-5.1) 07/11/23 03:56 Chloride 100 mmol/L (98-107) 07/11/23 03:56 Carbon Dioxide 26 mmol/L (22-29) 07/11/23 03:56 Anion Gap 14.6 (5-19) 07/11/23 03:56 BUN 13 mg/dL (6-20) 07/11/23 03:56 Creatinine 0.7 mg/dL (0.5-0.9) 07/11/23 03:56 GFR Calculation 95.8 mL/min (90-130) 07/11/23 03:56 Glucose 107 mg/dL (65-115) 07/11/23 03:56 Calculated Osmolality 285 mOsm/kg (285-295) 07/11/23 03:56 Calcium 8.8 mg/dL (8.5-10.5) 07/11/23 03:56 Total Bilirubin 0.2 mg/dL (0.15-1.2) 07/11/23 03:56 AST 23 U/L (0-32) 07/11/23 03:56 ALT 20 U/L (0-33) 07/11/23 03:56 Alkaline Phosphatase 82 U/L (35-105) 07/11/23 03:56 C-Reactive Protein 3.0 mg/L (0.0-4.9) 07/11/23 03:56 Total Protein 7.6 g/dL (6.6-8.7) 07/11/23 03:56 Albumin 4.4 g/dL (3.5-5.2) 07/11/23 03:56 Globulin 3.2 g/dL (1.3-4.6) 07/11/23 03:56 Lipase 27 U/L (13-60) 07/11/23 03:56 HCG, Qual Negative (Negative) 07/11/23 03:56 Urine Color Dark yellow (Yellow) 07/11/23 05:41 Urine Appearance Hazy (CLEAR) A 07/11/23 05:41 Urine pH 5 (5-7) 07/11/23 05:41 Ur Specific [place] 1.020 (1.005-1.030) 07/11/23 05:41 Urine Protein Neg (Negative) 07/11/23 05:41 Urine Glucose (UA) Norm (Normal) 07/11/23 05:41 Urine Ketones Negative (Negative) 07/11/23 05:41 Urine Blood 3+ (Negative) H 07/11/23 05:41 Urine Nitrate Negative (Negative) 07/11/23 05:41 Urine Bilirubin Neg (Negative) 07/11/23 05:41 Urine Urobilinogen Neg mg/dL (Negative) 07/11/23 05:41 Ur Leukocyte Esterase 1+ (Negative) H 07/11/23 05:41 Urine RBC 25-40 /hpf (0-2) H 07/11/23 05:41 Urine WBC 15-25 /hpf (0-5) H 07/11/23 05:41 Ur Squamous Epith Cells 5-10 /hpf (0-5) H 07/11/23 05:41 Amorphous Sediment 1+ /hpf 07/11/23 05:41 Urine Bacteria 2+ /hpf (NONE) H 07/11/23 05:41 Urine Mucus 1+ /hpf 07/11/23 05:41 Urine Opiates Screen Positive ng/mL (Negative) H 07/11/23 05:41 Ur Barbiturates Screen Negative ng/mL (Negative) 07/11/23 05:41 Ur Phencyclidine Scrn Negative ng/mL (Negative) 07/11/23 05:41 Ur Amphetamines Screen Negative ng/mL (Negative) 07/11/23 05:41 U Benzodiazepines Scrn Positive ng/mL (Negative) H 07/11/23 05:41 Urine Cocaine Screen Negative ng/mL (Negative) 07/11/23 05:41 U Marijuana (THC) Screen Positive ng/mL (Negative) H 07/11/23 05:41 Ethyl Alcohol < 10 mg/dL (0-10) 07/11/23 03:56 Influenza Type A Ag negative (Negative) 07/11/23 04:47 Influenza Type B Ag negative (Negative) 07/11/23 04:47 SARS-CoV-2 Ag (Rapid) negative (Negative) 07/11/23 04:47 All radiology interpretation(s) finalized by discharge Discharge Plan Discharge Patient Disposition: Home Clinical Impression: Urinary tract infection, Ventral hernia, recurrent Condition: Stable Prescriptions: New Bactrim DS 800-160 mg tablet 1 tab PO BID 7 Days Qty: 14 0RF No Action hydrocodone-acetaminophen 5-325 mg tablet 1 tab PO Q8H PRN (Reason: pain) Qty: 7 0RF Medrol (Jamir) 4 mg tablets,dose pack See Rx Instructions .ROUTE .COMPLEX Qty: 21 0RF Rx Instructions: orally per package directions Citrate of Magnesia Solution 296 ml PO DAILY Qty: 296 0RF Discharge Orders: Discharge ED (Routine); Ordered 07/11/23 Ordered By: Garret Doherty Referrals: Yony Schaeffer DO [Primary Care Provider] - 4-7 days Patient Instructions: Urinary Tract Infection in Women (ED), Ventral Hernia (ED), Opioid Safety, Pain Management Activity Restrictions/Additional Instructions: Antibiotics as directed. Return for vomiting liquids or medications, fever despite 2-3 doses of antibiotics, other concerning symptoms Coding Level of Care Code ED Supplier Quality Manager for Sunni Mclean
[2023-07-11] MEDS: iohexol 350 mg/mL 500 mL Btl (per mL) IV (05:33)
[2023-07-11 05:47] LABS: Influenza A by IFA negative (Negative); Influenza B by IFA negative (Negative); SARS Covid-2 Antigen negative (Negative)
[2023-07-11 05:52] LABS: Add Urine Microscopic? YES; Bilirubin Urine Neg (Negative); Blood Urine 3+ (Negative); Glucose Urine UA Norm (Normal); Ketones Urine Negative (Negative); Leukocyte Esterase Urine 1+ (Negative); Nitrate Urine Negative (Negative); Protein Urine Neg (Negative); Urine Appearance Hazy (CLEAR); Urine Color Dark Yellow (Yellow); Urobilinogen Urine Neg (Negative); pH Urine 5 (5-7)
[2023-07-11 05:53] LABS: Amorphous Sediment Urine 1+ /hpf; Bacteria Urine 2+ /hpf; Mucus Urine 1+ /hpf; RBC Urine 25-40 /hpf (0-2); WBC Urine 15-25 /hpf (0-5)
[2023-07-11 05:54] LABS: Add Urine Culture? Yes
[2023-07-11 05:55] LABS: Amphetamines Screen Urine Negative (Negative); Barbiturates Screen Urine Negative (Negative); Benzodiazepines Screen Urine Positive (Negative); Cocaine Screen Urine Negative (Negative); Opiate Screen Urine Positive (Negative); PCP Screen Urine Negative (Negative); THC Screen Urine Positive (Negative)
[2023-07-11] MEDS: oxyCODONE-APAP 5-325 mg Tablet 1 TAB PO (07:18)
--- NOTE | 2023-07-11 07:20 | PC.NURSE ---
Nurse entered room, pt was sleeping. nurse tried to wake up pt, pt would not wake up. pt had friend at bedside, friend tried to help nurse wake patient up. pt barely aroused, nurse educated pt about discharge information. pt became angry about her hernia not getting fixed. nurse went and found dr. tom, dr. tom talked to pt. dr. tom came to nurse and verbalized giving patient pain medication then pt would be clear for discharge. nurse entered medication order and gave pt medication. pt took medication and then stated I'm calling my mom, she is a charge nurse, I have never heard of a place giving medication like this and then discharge them. pt was yelling at friend in the room and was telling friend to stop touching her stuff and to get out of her way. nurse tried to deescalate pt but pts voice started getting louder, nurse called [facility] charge nurse for back up. pt did not want primary nurse in room.
--- NOTE | 2023-07-11 07:33 | PC.NURSE ---
0715: NURSE RICHARD NOTIFIED ME THAT THIS NURSE WAS NEEDED IN ROOM 15. PATIENT WAS YELLING AT NURSING STAFF UPON THIS NURSE'S ARRIVAL. RICHARD STATED THAT PATIENT WANTED TO TALK TO A ADJUNCT SOCIOLOGY PROFESSOR. THIS NURSE ENTERED THE ROOM AND THE PATIENT BEGAN YELLING AT THIS NURSE, WELL, STATING THAT SHE DIDN'T KNOW WHAT WAS GOING ON AND THAT HER MOM IS A NURSE ADJUNCT SOCIOLOGY PROFESSOR AND SHE WOULD NEVER TREAT ME LIKE THIS. THIS NURSE TRIED TO EXPLAIN THAT SHE WAS THE CHARGE NURSE AND ADJUNCT SOCIOLOGY PROFESSOR ON [employer] AND WOULD GLADLY HELP THE PATIENT IF SHE COULD EXPLAIN WHAT INFORMATION SHE WAS LOOKING FOR. PATIENT CONTINUES TO STATE THAT SHE DON'T EVEN KNOW. THIS NURSE ASKED TO SEE PATIENT'S DISCHARGE PAPERWORK AND TO EXPLAIN DISCHARGE INSTRUCTIONS. PATIENT GRABBED PAPERS FROM THIS NURSE'S HANDS AND AGAIN YELLED THAT'S NOT WHAT I'M TALKING ABOUT. MULTIPLE ATTEMPTS MADE TO DE-ESCALATE PATIENT. PATIENT CONTINUED TO BECOME MORE IRRITATED WITH STAFF. PATIENT STATES THAT SHE WANTED TO SPEAK WITH THE PHYSICIAN, DR RENTERIA. PATIENT NOTIFIED THAT PHYSICIAN THAT HAD SPOKEN WITH HER WAS NO LONGER HERE. PATIENT STATES YES, HE WAS. I JUST SAW HIM. THIS NURSE EXPLAINED THAT THE ONCOMING PHYSICIAN STARTS HIS SHIFT AT 0600 AND OUTGOING PHYSICIAN HAD LEFT AROUND 0645. THIS NURSE ASKED IF THERE WAS ANYTHING FURTHER SHE COULD BE PROVIDED WITH FOR EDUCATION OR TO HELP PATIENT UNDERSTAND DISCHARGE INSTRUCTIONS. PATIENT TOOK DOWN NAMES OF PHYSICIAN, ONCOMING NURSING STAFF, AND CHARGE NURSE AND LEFT ER. 0740: PATIENT PRESENTED BACK TO ER REGISTRATION AND ASKED THEM TO SPEAK WITH PHYSICIAN IN PRIVATE ROOM BY THEMSELVES. ER REGISTRATION SPOKE TO THIS NURSE. PROVIDER NOTIFIED OF PATIENT QUESTION. ONCOMING PROVIDER, JUANITA, STATED THAT HE WOULD GLADLY SPEAK TO THE PATIENT IF SHE CHECKED BACK IN SO HE COULD HAVE SOMETHING TO DOCUMENT AGAINST. THIS NURSE WALKED BACK OUT TO THE ER REGISTRATION AND EXPLAINED THIS TO THE PATIENT. THE PATIENT STATED THAT SHE CALLED THE PHARMACY AND THEY ONLY HAD THE ANTIBIOTIC, NOT THE PAIN MEDICATIONS. THIS NURSE WENT BACK TO COMPUTER TO CHECK ON STATUS OF PATIENT MEDICATIONS AND SPOKE WITH RICHARD IN REGARDS TO MEDICATIONS SENT TO PHARMACY. PER RICHARD, PROVIDER ONLY ORDERED PAIN MEDICATIONS WHILE WAS HERE, PATIENT GIVEN ORDERED HYDROCODONE, AND WOULD NOT BE GIVEN A PRESCRIPTION FOR HOME USE. THIS NURSE VERBALIZED THIS INFORMATION TO THE PATIENT. PATIENT ASKED WITH ALL THIS GOING ON? WHAT AM I SUPPOSED TO DO? THIS NURSE VERBALIZED THAT IF SHE WAS NOT HAPPY WITH HER CARE THAT SHE COULD CHECK BACK IN AND SEEN BY THE DAYSHIFT PHYSICIAN OR SHE COULD FOLLOW UP WITH HER PRIMARY CARE. PATIENT STATED I GUESS I'LL JUST GO AHEAD MAKE THOSE PHONE CALLS AND LEFT THE FACILITY. PROVIDER NOTIFIED.
== END 2023-07-11 07:04 | disposition home or self-care (01) ==
PROVIDERS: Emergency Provider Emergency Medicine; PCP Family Medicine
DX: N39.0 Urinary tract infection, site not specified (principal); K43.2 Incisional hernia without obstruction or gangrene; Z11.52 Encounter for screening for COVID-19; Z72.0 Tobacco use
CPT/HCPCS: 74177; 80053; 80306; 80307; 81001; 83690; 84703; 85025; 86140; 87086; 87426; 87804; 99285; Q9967

== ENCOUNTER 2023-10-11 10:01 | Day surgery (SDC) | payer MEDICAID, SELFPAY ==
[2023-10-11] VITALS (19 sets, daily range): BP systolic 112–141; BP diastolic 62–97; PULSE 59–96; RESP 12–26; TEMP 36.4–36.9; O2SAT 90–100; BMI 28.5
[2023-10-11 10:12] LABS: OR HCG Qualitative Urine Negative (Negative)
[2023-10-11] MEDS: sodium chloride 0.9% 1,000 ML 30 ML IV (10:20)
--- NOTE | 2023-10-11 10:49 | W.PM.OPSUD ---
Surgery/Procedure H&P Update DATE OF PROCEDURE: October 11, 2023 DATE H&P PERFORMED: 10/06/23 H&P UPDATE INFORMATION: I have reviewed H&P completed within last 30 days, I have examined patient prior to procedure and No changes to prior documentation PLANNED PROCEDURE: Operation Date: 10/11/23 11:25 Proposed Procedures p Laparoscopic Ventral Hernia Repair Laparoscopic Incisional Hernia Repair w mesh [id number], K43.2(Not Applicable) - Dre Bland DO
--- NOTE | 2023-10-11 11:02 | P.ANESASSM_ITS ---
Pre-Anesthetic Assessment Height/Weight: Height 1.7 m Weight 82.554 kg Temp Pulse Resp BP Pulse Ox O2 Del Method 98.5 F 59 L 17 112/66 98 Room Air 10/11/23 10:18 10/11/23 10:18 10/11/23 10:18 10/11/23 10:18 10/11/23 10:18 10/11/23 10:18 Operation Date: 10/11/23 11:25 Proposed Procedures p Laparoscopic Ventral Hernia Repair Laparoscopic Incisional Hernia Repair w mesh [id number], K43.2(Not Applicable) - Dre Bland DO Familial anesthetic complications: None Was Beta Tiffanie taken within 24 hours: N/A Was Clonidine taken within 24 hours: N/A Last intake: > 8hrs Social Tobacco and No alcohol Exam alert, oriented x 3, clear to auscultation bilaterally and regular rate & rhythm Airway Mallampati: Class I Dentition: other (no teeth) Anesthetic Plan ASA status: 1 Anesthesia: General Risk of > 500 ml blood loss (7ml/kg in children): No Medications/Allergies Home Medications Medication Instructions Recorded Confirmed Last Taken Type No Known Home Medications 10/06/23 10/10/23 Unknown History Allergies Allergy/AdvReac Type Severity Reaction Status Date / Time ketorolac [From Toradol] Allergy ALGY-Rash Verified 10/11/23 10:15 naproxen Allergy ALGY-Rash Verified 10/11/23 10:15 phenazopyridine Allergy ALGY-Rash Verified 10/11/23 10:15 [From Pyridium] [facility] Anesthesia Medical History (Updated 10/06/23 @ 10:41 by Dre Bland DO) History of migraine Anxiety Chronic constipation Surgical History (Updated 10/06/23 @ 10:41 by Dre Bland DO) History of repair of congenital atrial septal defect (ASD) History of appendectomy History of tubal ligation History of cholecystectomy Family History Father Cancer Dementia Mother Lupus Denies family history of Diabetes Chronic kidney disease (CKD) Family history of premature coronary artery disease Hypertension Social History Smoking and tobacco/nicotine status: current every day tobacco/nicotine user Second hand smoke exposure: No Alcohol intake: never Substance/Drug Use: unknown Adopted: No Caregiver/support person: No Lives independently: Yes Household members: significant other Housing: House Marital status: Single Number of children: 5 service: No Current occupational status: unemployed Pets and animals: Yes Pets & animals: dog(s) Do you think of yourself as: Straight/Heterosexual Current gender identity: Female Data Anesthesia Cardiac Studies: No Data to Display
[2023-10-11] MEDS: ceFAZolin 2,000 MG in sodium chloride 0.9% (plus) 50 ML 100 MG IV (11:23)
[2023-10-11] MEDS: BUPivacaine 0.25% INJ 30 mL INJECTION (11:44)
[2023-10-11] MEDS: lidocaine-epi 2% PF 1:200,000 20 mL SDV XX (11:44)
--- NOTE | 2023-10-11 12:08 | PM.OP ---
Operative Report Date of procedure: October 11, 2023 Pre-op diagnosis: Incisional hernia Post-op diagnosis: same Procedure done: Laparoscopic repair of incisional hernia with mesh Implants: 11 cm round Ventralight mesh Specimens removed/disposition: Hernia sac Surgeon: Dre Bland DO Anesthesia: General and Local Estimated blood loss (mL): 5 Complications: None apparent Brief History: This is a very pleasant 33-year-old female who presented my office with a painful incisional hernia in her epigastrium following laparoscopic cholecystectomy at outside facility. She desired repair. The risks and benefits were explained and documented. Procedure: Patient was wheeled into the operative room and placed on the OR table in a supine position. Abdomen was inspected prepped and draped in usual sterile fashion. Time-out was performed and all present were in agreement. A 15 blade scalp was used to make a 5 millimeter incision left upper quadrant. A Veress needle was placed into the incision and intra-abdominal insufflation was brought to 15 millimeters of mercury. A 12 millimeter trocar was placed into the left lower quadrant. The energy but device was then used to take down the falciform ligament and cut out the hernia sac. A 1.5 cm in diameter incisional hernia was identified containing fat. Hernia sac and contents were removed with ligature. An 11 cm Ventralight mesh was placed into the abdomen and brought up through the umbilicus using an the Karlos-Patty. The mesh was then tacked in place in a double crown fashion. The skeleton of the mesh was removed via the left lower quadrant. The hernia sac was then removed from the abdomen via the left lower quadrant. The left lower quadrant port site was closed with an 0 Vicryl suture in a Karlos-Patty in a [id number] fashion. Incisions were closed with 4 O Vicryl in a subcuticular interrupted fashion. Skin glue was applied. . Patient tolerated the procedure well.
[2023-10-11] MEDS: midazolam 1 mg/mL INJ 2 mL 2 MG IVP (13:05)
--- NOTE | 2023-10-11 13:15 | PC.NURSE ---
Addendum entered by Orin Cavanaugh RN 10/11/23 13:25: Upon nurse request to assess surgical site or replace blood pressure cuff/ekg leads - pt repeatedly slaps at this nurse Original Note: 1300 - pt resting with eyes closed - vss - attempted to remove monitor from patient to move to Phase 2 - pt begins to scream help, help I can't believe noone is doing anything for my pain - per anesthesia record - fentanyl doses administered both in OR and PACU per MATILDE Langley - Dr Bland at side - requests for anesthesia to reevaluate - 1305 - 2mg versed given IVP per anesthesia order - pt resting at present time but will arouse and continue to state I can't believe noone will give me medication - I'm turning you in then pt returns to sleep - VSS - will continue to monitor pt - pt has refused ice chips throughout PACU stay and refused to let this nurse assess surgical site - assessed site X2 assist - site unremarkable
--- NOTE | 2023-10-11 13:33 | PC.NURSE ---
1325 - V. Parrish RN outpt nurse updated to PACU medications administered
[2023-10-11] MEDS: HYDROcodone-acetaminophen 7.5-325 mg Tablet 1 TAB PO (14:15)
--- NOTE | 2023-10-11 14:42 | SUR.PHASEII ---
Upon accessing patient's incision sites RN noticed the incision in the mid upper section of her abdomen was leaking blood. The gown had spots that were saturated. RN contacted Dr Bland and was advised to clean area well with alcohol and cover site with dermabond.
--- NOTE | 2023-10-11 14:45 | SUR.PHASEII ---
Patient struggling with the pain. States she has shooting pain to her right side that is going up. Patient is not willing to move or let us raise the head of the bed. Patient is keeping knees bent and guarding her abdomen.
[2023-10-11] MEDS: HYDROmorphone 1 mg/mL INJ 1 mL 0.5 MG IVP ×2 (15:24→15:50)
--- NOTE | 2023-10-11 16:45 | ANE.PACU2 ---
Inpatient post-anesthesia follow up: Airway intact: Yes Vital signs: Temperature 98.0 F Pulse Rate 72 Respiratory Rate 18 Blood Pressure 125/62 Pulse Oximetry 94 Oxygen Delivery Me thod Room Air Oxygen Flow Rate 2 Fraction of Inspir ed Oxygen Hydration adequate: Yes Nausea and vomiting: No Pain level: 6 Mental status: Baseline Additional Comments: Patient experienced tost op pain refractory to treatment with opioids IV and tylenol IV
--- NOTE | 2023-10-11 16:48 | SUR.PHASEII ---
Patient continues to claim pain is not normal. States we aren't doing anything to help with the pain. RN spoke with Dr three times, and with Anesthesia for additional orders to control pain. Order was given for IV tylenol as patient has been administered a lot of narcotic pain medications with no relief. Patient was offended by offer of tylenol although i explained it has benefits to postoperative pain. Patient states she was should never have came here and would never come back as we didn't know what we were doing. Patient states she should not hurt like this and no one was listening to her. It was explained that she needed to move around to expel gas from laparoscopic procedure. Would not move or get out of bed for 3 hours after returning to post op against advice.
== END 2023-10-11 16:46 | disposition home or self-care (01) ==
PROVIDERS: Anesthesiology; PCP Family Medicine; Visit Provider Surgery
PROC: 0WQF4ZZ Repair Abdominal Wall, Percutaneous Endoscopic Approach (ICD-10-PCS; CPT 49591; principal; 2023-10-11 11:25)
DX: K43.2 Incisional hernia without obstruction or gangrene (principal); F17.200 Nicotine dependence, unspecified, uncomplicated
CPT/HCPCS: 49591; 81025; 88302; C1781; J0690; J1100; J1170; J1200; J2250; J2405; J2704; J3010; J3490; J7030